=== PATIENT | male | born 1960 | race African-American/Black ===

== ENCOUNTER 2016-11-12 07:09 | Emergency (ER) | payer OTHER ==
--- NOTE | 2016-11-12 10:18 | ER Document Report ---
HPI - HPI Patient complains to provider of: cough, sore throat Onset: Other - 3 days Onset/Duration: Persistent Quality of pain: Achy Pain Level: 5 Context: Patient reports three-day history of cough, sore throat and tenderness to left side of neck. Patient denies any fever. Patient denies any nausea, vomiting, or abdominal pain. Associated Symptoms: Nonproductive cough, Sore throat. denies: Fever, Rhinnorhea Exacerbated by: Denies Relieved by: Denies Similar symptoms previously: Yes Recently seen / treated by doctor: No - ROS ROS below otherwise negative: Yes Systems Reviewed and Negative: Yes All other systems reviewed and negative - CONSTITUTIONAL Constitutional: DENIES: Fever, Chills - EENT EENT: REPORTS: Sore Throat. DENIES: Ear Pain, Nasal Drainage-Clear, Nasal Drainage-Purulent, Congestion, Eye problems - NEURO Neurology: DENIES: Headache, Weakness, Vision blurred, Dizzinesss / Vertigo - CARDIOVASCULAR Cardiovascular: DENIES: Chest pain - RESPIRATORY Respiratory: REPORTS: Coughing. DENIES: Trouble Breathing - GASTROINTESTINAL Gastrointestinal: DENIES: Abdominal Pain, Nausea, Patient vomiting, Diarrhea - MUSCULOSKELETAL Musculoskeletal: REPORTS: Neck Pain - Left lateral side. DENIES: Extremity pain , Back Pain, Swelling - DERM Skin Color: Normal Skin Problems: None - NURSING COMMENTS Comment: patient arrived at ED with complaints of a sore throat since wednesday. patient states that he was just trying to deal with it until it went away but this morning patient states that the pain was the worst that it has been and that his left lymph node is swollen. patient reports a cough that started this morning. NAD at this time. Breathing unlabored and even. skin warm dry and intact. A&Ox4 Past Medical History - General Information source: Patient - Social History Smoking Status: Never Smoker Cigarette use (# per day): No Chew tobacco use (# tins/day): No Frequency of alcohol use: None Drug Abuse: None Occupation: none Family History: Reviewed & Not Pertinent Patient has suicidal ideation: No Patient has homicidal ideation: No - Past Medical History Cardiac Medical History: Reports: Hx Hypertension Denies: Hx Coronary Artery Disease, Hx Heart Attack Pulmonary Medical History: Denies: Hx Asthma, Hx Bronchitis, Hx COPD, Hx Pneumonia Neurological Medical History: Denies: Hx Cerebrovascular Accident, Hx Seizures Endocrine Medical History: Reports: Hx Diabetes Mellitus Type 2 Renal/ Medical History: Denies: Hx Peritoneal Dialysis GI Medical History: Reports: Hx Hepatitis - Hep C Musculoskeltal Medical History: Denies Hx Arthritis Infectious Medical History: Reports: Hx Hepatitis - Hep C Past Surgical History: Reports: Hx Abdominal Surgery - liver bx, Hx Oral Surgery - dental extraction - Immunizations Immunizations up to date: Yes Hx Diphtheria, Pertussis, Tetanus Vaccination: Yes Vertical Provider Document - CONSTITUTIONAL Agree With Documented VS: Yes Exam Limitations: No Limitations General Appearance: WD/WN, No Apparent Distress - INFECTION CONTROL TRAVEL OUTSIDE OF THE [place] IN LAST 30 DAYS: No - HEENT HEENT: Atraumatic, Normocephalic, Pharyngeal Tenderness. negative: Pharyngeal Exudate, Pharyngeal Erythema, Tympanic Membrane Red, Tympanic Membrane Bulging Mouth Diagram: 1 - Dental caries without tenderness, no gingival abscess, no sublingual or submental swelling - NECK Neck: Lymphadenopathy-Left - Tender lymph node left upper anterior cervical chain normal skin color and temperature overlying lymph node - RESPIRATORY Respiratory: No Respiratory Distress, Chest Non-Tender, Other - Occasional dry cough. negative: Rales, Rhonchi, Wheezing O2 Sat by Pulse Oximetry: 96 - CARDIOVASCULAR Cardiovascular: Regular Rate, Regular Rhythm, No Murmur - BACK Back: Normal Inspection - MUSCULOSKELETAL/EXTREMETIES Musculoskeletal/Extremeties: MAEW - NEURO Level of Consciousness: Awake, Alert, Appropriate - DERM Integumentary: Warm, Dry, No Rash Course - Vital Signs Vital signs: Temp Pulse Resp BP Pulse Ox 98.1 F 71 16 162/97 H 96 11/12/16 07:14 11/12/16 07:14 11/12/16 07:14 11/12/16 07:14 11/12/16 07:14 - Laboratory Laboratory results interpreted by me: 11/12/16 13:23 Labs- Entire Visit 11/12/16 07:43 Group A Strep Rapid NEGATIVE - Diagnostic Test Radiology reviewed: Reports reviewed Discharge - Discharge Clinical Impression: Sore throat Upper respiratory infection Qualifiers: URI type: unspecified URI Qualified Code(s): J06.9 - Acute upper respiratory infection, unspecified Condition: Stable Disposition: HOME, SELF-CARE Instructions: Sore Throat ([facility]), Oral Narcotic Medication ([facility]), Upper Respiratory Illness ([facility]) Additional Instructions: Return immediately for any new or worsening symptoms Followup with your primary care provider, call tomorrow to make a followup appointment Throat culture is pending, we will call if you need any different treatment Prescriptions: Benzonatate [Tessalon Perle 100 mg Capsule] 100 mg PO Q8HP PRN #15 cap PRN Reason: Oxycodone HCl [Oxy-Ir 5 mg Tablet] 5 mg PO Q8 PRN #12 tablet PRN Reason: Forms: Elevated Blood Pressure Referrals: [facility] [Provider Group] - Follow up tomorrow
[2016-11-12 11:05] VITALS: BP 161/86
== END 2016-11-12 10:55 | disposition home or self-care (01) ==
LOC: ER 07:09
DX: J02.9 Acute pharyngitis, unspecified (principal); J06.9 Acute upper respiratory infection, unspecified; K02.9 Dental caries, unspecified; I10 Essential (primary) hypertension; E11.9 Type 2 diabetes mellitus without complications; Z86.19 Personal history of other infectious and parasitic diseases
CPT/HCPCS: 71020; 87070; 87880; 99283

== ENCOUNTER 2019-01-01 05:30 | Inpatient (IN) | payer OTHER ==
--- NOTE | 2019-01-01 05:58 | ER Document Report ---
Doctor's Note Notes: 01/01/19 05:55 Performed a quick stroke evaluation of the patient's. I did review the CT scan I do not see evidence of bleeding at this time. Radiologist report is pending. Patient says that throughout the night he has been try to get up to the bathroom. He stomach gets up he cannot walk well. He therefore eventually came to the ER. He does have some slurred speech. I suspect he is having a stroke. He has weakness on the right and leg and right arm that is worse than the left side. I continue to ask him when he last noticed that he had no symptoms and was doing well but he does not answer his question for me. He continues to talk about all the symptoms have been ongoing throughout the night but cannot give me an actual timeframe is when he was last completely normal and therefore it is difficult to determine when the stroke actually occurred. It appears that the last time that he most likely was normal was before going to bed yesterday evening based on what I can obtain from his history. Appropriate blood work has been ordered. I currently do not feel I can perform thrombolytic therapy at this time being that did not have a adequate timeframe of onset of symptoms that would deem it safe to give. Morning ED physician has just arrived and I have informed him that I just evaluate the patient informed him of my findings. Morning ED physician, Dr. Segundo, will assume care and continue patient's work- up. She is handling secretions well. Is no signs of impending airway compromise. He takes no medications and does not see a doctor on a routine basis. Dictation of this chart was performed using voice recognition software; therefore, there may be some unintended grammatical errors. 01/01/19 05:57
--- NOTE | 2019-01-01 05:58 | RADIOLOGY REPORT (SQ) ---
EXAM DESCRIPTION: CT HEAD WITHOUT IV CONTRAST COMPLETED DATE/TME: 01/01/2019 05:32 CLINICAL HISTORY: 59 years, Male, stroke alert COMPARISON: 07/12/2012 CT TECHNIQUE: 201 Images stored on PACS. All CT scanners at this facility use dose modulation, iterative reconstruction, and/or weight based dosing when appropriate to reduce radiation dose to as low as reasonably achievable (ALARA). [facility]: Dose Right [facility]: CareDose [facility]: Dose Right [facility]: Teradose 4D [facility]: [employer] LIMITATIONS: None. FINDINGS: Globes are intact. Paranasal sinuses and mastoid air cells are unremarkable. No displaced or depressed skull fracture. No intra or extra-axial hemorrhage. CT is limited for evaluation of acute infarct. No CT evidence for large or territorial acute infarct. Age-appropriate atrophy. Small vessel ischemic change. Age indeterminate lacunar infarct of the anterior limb of the left internal capsule. No mass or midline shift IMPRESSION: Age indeterminate lacunar infarct anterior limb left internal capsule. Atrophy. Small vessel ischemic change. TECHNICAL DOCUMENTATION: Quality ID # [id number]: Final reports with documentation of one or more dose reduction techniques (e.g., Automated exposure control, adjustment of the mA and/or kV according to patient size, use of iterative reconstruction technique) copyright 2010 [employer]- All Rights Reserved
[2019-01-01 06:00] LABS: ABSOLUTE BASOPHILS # (AUTO) 0.1 10^3/uL (0.0-0.2); ABSOLUTE EOSINOPHILS # (AUTO) 0.2 10^3/uL (0.0-0.6); ABSOLUTE LYMPHOCYTES (AUTO) 3.4 10^3/uL (0.5-4.7); ABSOLUTE MONOCYTES (AUTO) 0.7 10^3/uL (0.1-1.4); BASOPHILS % (AUTO) 0.6 % (0-2); EOSINOPHILS % (AUTO) 2.5 % (0-6); HEMOGLOBIN 14.6 g/dL (13.5-17.0); LYMPHOCYTES % (AUTO) 36.2 % (13-45); MEAN CORPUSCULAR HEMOGLOBIN 30.7 pg (27.0-33.4); MEAN CORPUSCULAR HGB CONC 33.9 g/dL (32.0-36.0); MEAN CORPUSCULAR VOLUME 91 fl (80-97); MONOCYTES % (AUTO) 7.3 % (3-13); PLATELET COUNT 237 10^3/uL (150-450); PROTHROMBIN TIME 11.7 SEC (11.4-15.4); RED BLOOD COUNT 4.74 10^6/uL (4.35-5.55); RED CELL DISTRIBUTION WIDTH 13.8 % (11.5-14.0); SEGMENTED NEUTROPHILS % (AUTO) 53.4 % (42-78); TOTAL CELLS COUNTED % (AUTO) 100 %; WHITE BLOOD COUNT 9.3 10^3/uL (4.0-10.5)
[2019-01-01 06:01] LABS: INTERNATIONAL RATION (INR) 0.82
--- NOTE | 2019-01-01 06:11 | RADIOLOGY REPORT (SQ) ---
EXAM DESCRIPTION: XR CHEST 1 VIEW COMPLETED DATE/TME: 01/01/2019 05:32 CLINICAL HISTORY: 59 years, Male, stroke alert COMPARISON: 11/12/2016 chest NUMBER OF VIEWS: 1 TECHNIQUE: Portable chest LIMITATIONS: None. FINDINGS: Heart size normal. Lungs clear. No pneumothorax IMPRESSION: Negative chest copyright 2010 [employer] [facility]- All Rights Reserved
[2019-01-01 06:18] LABS: ALANINE AMINOTRANSFERASE 17 U/L (21-72); ALBUMIN 4.2 g/dL (3.5-5.0); ALKALINE PHOSPHATASE 98 U/L (38-126); ANION GAP 12 (5-19); ASPARTATE AMINO TRANSFERASE 16 U/L (17-59); BILIRUBIN,DIRECT 0.2 mg/dL (0.0-0.4); BILIRUBIN,TOTAL 0.8 mg/dL (0.2-1.3); BLOOD UREA NITROGEN 13 mg/dL (7-20); CALCIUM 10.1 mg/dL (8.4-10.2); CARBON DIOXIDE 26 mmol/L (22-30); CHLORIDE 105 mmol/L (98-107); CREATINE KINASE 88 U/L (55-170); GLUCOSE 266 mg/dL (75-110); POTASSIUM 3.9 mmol/L (3.6-5.0); SODIUM 143.4 mmol/L (137-145); TOTAL PROTEIN 7.4 g/dL (6.3-8.2)
[2019-01-01 06:29] LABS: CREATINE KINASE MB 0.88 ng/mL (<4.55); TROPONIN I 0.016 ng/mL
--- NOTE | 2019-01-01 06:56 | ER Document Report ---
ED Neuro Symptoms/Deficit - General Chief Complaint: S/S of Possible Stroke Stated Complaint: S/S STROKE Time Seen by Provider: 01/01/19 05:54 Mode of Arrival: Ambulatory Information source: Patient Notes: This 59-year-old male patient comes emergency room with strokelike symptoms. He drove himself to the hospital and came through triage limping with right-sided deficits noted by the triage nurse. He was sent to CT scanner after a rapid evaluation by the nighttime physician. The patient tells me that he was up watching basketball game last night and fell asleep sometime after midnight he thinks. He reports waking between 1 AM and 2 AM and noted when he walks to the bathroom he had some trouble with his right lower extremity. He reportedly had a total of 3 episodes of getting up to go to the bathroom through the morning and each time it was more difficult to walk, so sometime after 5 AM he drove himself to the hospital and came in through triage. TRAVEL OUTSIDE OF THE [place] IN LAST 30 DAYS: No - Related Data Allergies/Adverse Reactions: acetaminophen [From Tylenol 8 Hour] Adverse Reaction (Unknown, Verified 11/12/16 07:13) Past Medical History - General Information source: Patient - Social History Smoking Status: Unknown if Ever Smoked Cigarette use (# per day): No Chew tobacco use (# tins/day): No Smoking Education Provided: No Drug Abuse: None Occupation: retired Lives with: Spouse/Significant other Family History: Reviewed & Not Pertinent - Past Medical History Cardiac Medical History: Reports: Hx Hypertension Endocrine Medical History: Reports: Hx Diabetes Mellitus Type 2 GI Medical History: Reports: Hx Hepatitis - Hep C Infectious Medical History: Reports: Hx Hepatitis - Hep C Past Surgical History: Reports: Hx Abdominal Surgery - liver bx, Hx Oral Surgery - dental extraction - Immunizations Immunizations up to date: Yes Hx Diphtheria, Pertussis, Tetanus Vaccination: Yes Review of Systems - Review of Systems Constitutional: No symptoms reported EENT: No symptoms reported Cardiovascular: No symptoms reported Respiratory: No symptoms reported Gastrointestinal: No symptoms reported Musculoskeletal: No symptoms reported Skin: No symptoms reported Hematologic/Lymphatic: No symptoms reported Neurological/Psychological: See HPI Physical Exam - Vital signs Vitals: Pulse Ox 99 01/01/19 05:32 Interpretation: Hypertensive - General General appearance: Alert In distress: None - HEENT Head: Normocephalic, Atraumatic Eyes: Normal Pupils: PERRL - Respiratory Respiratory status: No respiratory distress Breath sounds: Normal - Cardiovascular Rhythm: Regular Heart sounds: Normal auscultation Murmur: No - Abdominal Inspection: Normal Bowel sounds: Normal Tenderness: Nontender - Back Back: Normal - Extremities General upper extremity: Other - Right upper extremity weakness General lower extremity: Other - Right lower extremity weakness. No: Edema - Neurological Neuro grossly intact: No - Right-sided weakness - Psychological Associated symptoms: Normal affect, Normal mood - Skin Skin Temperature: Warm Skin Moisture: Dry Skin Color: Normal Course - Re-evaluation Re-evalutation: 01/01/19 07:30 Patient's blood pressures came back down to 184/102, so the Cardene will be held for now. 01/01/19 07:51 The patient has become quite argumentative when he learned he is being transferred to [facility]. He wants to get up and go drive himself to [facility]. I informed him that they do not manage strokes any differently than we do and they would likely want to transfer him to a stroke center. I have tried to help him understand that this transfer is in his best interest to help prevent further strokes and to help him fully recover. I have told him we can have security get his keys and try to contact a trusted family member to come get his car. 01/01/19 10:49 The transfer center at [facility] called with an update on bed status. They report transfer center called them and told him that he may go to bed later this afternoon and they would keep me updated. 01/01/19 14:05 At this time the patient had had worsening of his right-sided deficits to where it is similar to the way he initially presented. Since he was not going to get transferred in the near future, I sent him for MRI of his head which shows a 1.7 cm acute or subacute infarction in the left frontotemporal periventricular white matter with some involvement of the posterior limb of the internal capsule. I spoke with the transfer center at [facility] again and was told that it this point they do not know when they will have any discharges from the stroke unit, and they do not know if there are any other stroke unit patients pending in the emergency room at their facility. I contacted the hospitalist service at this facility and they will come see the patient and admit here until a bed opens. - Vital Signs Vital signs: Temp Pulse Resp BP Pulse Ox 76 12 192/92 H 98 01/01/19 06:00 01/01/19 06:21 01/01/19 06:21 01/01/19 06:21 - Laboratory Result Diagrams: 01/01/19 05:35 01/01/19 05:35 Laboratory results interpreted by me: 01/01/19 01/01/19 05:35 05:41 Glucose 266 H POC Glucose 249 H AST 16 L ALT 17 L - Diagnostic Test Radiology reviewed: Image reviewed, Reports reviewed - CT scan shows indeterminate lacunar infarct in the anterior limb of the left internal capsule with some atrophy, and small vessel ischemic changes. Chest x-ray is unremarkable. - EKG Interpretation by Me EKG shows normal: Sinus rhythm, [place], Intervals, QRS Complexes. abnormal: ST-T Waves - Borderline inferior T abnormalities Rate: Normal - 73 Rhythm: NSR [place]/QRS: Left axis deviation Voltage: Consistant with LVH When compared to previous EKG there are: Previous EKG unavailable - Consults Dr. Worthington Consulted provider: other Julieth Mclaughlin NP Time consulted: 14:02 Consulted provider: will come to ER Critical Care Note - Critical Care Note Total time excluding time spent on procedures (mins): 55 ED [employer]te[employer]/Exc Criteria - Inclusion Criteria: 1: Patient presented to ED within 3 hours of acute ischemic stroke symptom onset? -: No 2: Did baseline CT exclude intracranial hemorrhage and/or other risk factors? -: Yes 3: Is the age of the patient 18 years of age or greater? -: Yes : If any of the above questions are answered "NO" then stop, patient is not a candidate for Alteplase, : If all of the above questions are answered "YES" then continue with Exclusion Criteria. - Exclusion Criteria: 1: Is there evidence of intracranial hemorrhage on baseline CT? 2: Is there suspicion of subarachnoid hemorrhage (even if CT negative)? 3: Is there a history of serious head trauma, recent previous stroke or NV within 3 months? 4: Does the patient have a clinical presentation consistent with NV or post-NV pericarditis? 5: Is there history of intracranial hemorrhage? 6: On repeated measurement is Systolic BP greater than 185mmHg or Diastolic BP greater that 110 mmHg and is aggressive treatment needed to reduce blood pressure to these limits (e.g. constant infusion of an anti-hypertensive)? 7: Did the patient awake with stroke symptoms? 8: Has the patient had a lumbar puncture or an arterial puncture at a non- compressile site within 7 days? 9: With in the last 14 days did the patient have surgery or major trauma? 10: Is the patient or less than 2 weeks? 11: Was there any active bleeding or acute trauma? 12: Does the patient have intracranial neoplasm, arteriovenous malformation or a neurysm? 13: Does the patient have abnormal glucose (less than 50 or greater than 400mg/dl)? Record glucose in Comment. 14: Patient has rapidly improving symptoms at the time Alteplase is to be Administered. 15: Does the patient have any risks for bleeding, including but not limited to: a.: Current use of Coumadin with PT greater than 15 seconds or INR greater than 1.7. b.: Current use of Pradaxa (Dabigatran). c.: Heparin administereed within the past 48 hours and PTT elevated. d.: Platelet count less than 100,000/mm. e.: Major surgery or serious trauma within 14 days. f.: Gastrointestinal or gynecological urinary bleeding within 14 days. g.: Myocardial Infarction (NV) within 3 months. : If the answer to any of the above questions is "YES" then stop, the patient is not a candidate for Alteplase. : If the answer to all of the above questions is "NO" then the patient may be eligible for the Administration of Alteplase. : If the patient is noted to have seizure activity at onset of Stroke symptoms; Consult Neurologist for further evaluation. - The patient is: -: Included and is eligible to receive Alteplase. *Initiate bed placement at higher level of care* Reviewed risks & benefits of thrombolytic therapy: I have reviewed the risks and benefits of thrombolytic therapy with the patient and/or his/her family. -: Excluded and not eligible to receive Alteplase for the above exclusions. -: Excluded and not eligible to receive Alteplase for other reasons (specify in comments): - Diagnosis of TIA: -: Patient presented with transient symptoms that are now resolved and no other neurologic findings are currently present. List symptoms in comments. -: Patient is NOT a candidate for tPA. -: ____(put name in comment) has been consulted for admission and continued evaluation of risk factor assessment. ED NIH Stroke Scale - NIH Stroke Scale When completed:: Before Alteplase *: 1. NIH scale should be completed with appropriate accompanying assessment tools. *: 2. The NIH should reflect what the patient is capable of doing and should not be coached by the clinician. 1a. Level of Consciousness: 0=Alert;keenly responsive -: 1=Drowsy -: 2=Obtunded -: 3=Coma/unresponsive or reflex to noxious stimuli. 1a. Responses: 0 1b. Orientation Questions: a. What month is it? -: b. How old are you? -: 0=Answers both questions correctly. -: 1=Answers one question correctly or patient is intubated or has orotracheal trauma. -: 2=Answers neither question correctly. 1b. Responses: 0 1c. Response to commands: a. Open and close eyes? -: b. Forepart Rasper and release hand? -: Credit is given despite weakness. Demonstration of task is permitted. Substitute command if hands cannot be used. -: 0=Performs both tasks correctly -: 1=Performs one task correctly -: 2=Performs neither task correctly 1c. Responses: 1 2. Gaze: Establish eye contact and instruct patient to "Follow my finger" -: 0=Normal -: 1=Partial gaze palsy. Gaze is abnormal in one or both eyes, but where forced deviation or total gaze paresis is not present. -: 2=Forced deviation or total gaze paresis. 2. Responses: 0 3. Visual Cordero: Sees fingers in all four quadrants. -: 0=No visual loss. -: 1=Partial hemianopsia. -: 2=Complete hemianopsia. -: 3=Bilateral hemianopsia (including Cortical blindness) 3. Responses: 0 4. Facial Movement: Instruct patient to: -: a. Show me your teeth -: b. Raise your eyebrows -: c. Close your eyes -: d. Smile -: 0=Normal symmetrical movement -: 1=Minor paralysis (flattened nasolabial fold, asymmetry on smiling). -: 2=Partial paralysis (total or near total paralysis of lower face). -: 3=Complete paralysis of upper and lower face 4. Responses: 2 5. Motor functions (left arm): Alternate sides and extend each arm with palms down (90 degrees if sitting or 45 degrees for supine). -: 0=No drift;limb holds for full 10 seconds. -: 1=Drift; limb holds but drifts down before full 10 seconds, but does not hit bed. -: 2=Some effort against gravity; limb cannot get to or maintain position. -: 3=No effort against gravity; limb falls. -: 4=No movement. -: UN=Amputation, joint fusion, explain in comments. 5. Responses (left arm): 0 5. Motor Functions (right arm): Alternate sides and extend each arm with palms down (90 degrees if sitting or 45 degrees for supine). -: 0=No drift;limb holds for full 10 seconds. -: 1=Drift; limb holds but drifts down before full 10 seconds, but does not hit bed. -: 2=Some effort against gravity; limb cannot get to or maintain position. -: 3=No effort against gravity; limb falls. -: 4=No movement. -: UN=Amputation, joint fusion, explain in comments. 5. Responses (right arm): 3 6. Motor Functions (left leg): With patient lying supine, alternate sides and extend each leg (30 degrees always while supine). -: 0=No drift, leg holds position for full 5 seconds -: 1=Drift; leg falls before full 5 seconds but does not hit bed. -: 2=Some effort against gravity, leg falls to bed but some effort against gravity. -: 3=No effort against gravity, leg falls to bed immediately. -: 4=No movement. -: UN=Amputation, joint fusion; explain in comments. 6. Responses (left leg): 0 6. Motor Functions (right leg): With patient lying supine, alternate sides and extend each leg (30 degrees always while supine). -: 0=No drift, leg holds position for full 5 seconds -: 1=Drift; leg falls before full 5 seconds but does not hit bed. -: 2=Some effort against gravity, leg falls to bed but some effort against gravity. -: 3=No effort against gravity, leg falls to bed immediately. -: 4=No movement. -: UN=Amputation, joint fusion; explain in comments. 6. Responses (right leg): 3 7. Limb Ataxia: With eyes open instruct patient to: -: a. "Touch your finger to your nose". -: b. "Touch your heel to your rehman" -: 0=Absent -: 1=Present in one limb. -: 2=Present in two limbs. -: UN=Amputation or joint fusion; explain in comments. 7. Responses: 2 8. Sensory: Test sensation using pinprick or noxious stimuli. Test as many body parts as possible. -: 0=Normal;no sensory loss -: 1=Mile to moderate sensory loss (patient feels pin prick but is less sharp on affected side). -: 2=Severe or total sensory loss. 8. Responses: 0 9. Best Language: Instruct patient to: -: a. "Describe what you see in this picture." -: b. "Name the items in this picture." -: c. "Read these sentences." -: 0=No aphasia, normal -: 1=Mild to moderate aphasia. -: 2=Severe aphasia -: 3=Mute, global aphasia, no usable speech or auditory comprehension. 9. Responses: 0 10. Articulation, Dysarthia: Instruct patient to: -: "Read these words" or "Repeat these words" -: 0=Normal -: 1=Mild to moderate; patient may slur some words but can be understood without difficulty. -: 2=Severe; patients speech so slurred as to be unintelligible in the absence of dysphasia. -: UN=Intubated or other physical barrier, explain in comments. 10. Responses: 1 11. Extinction or inattention: 0=No abnormality -: 1= Visual, tactile, auditory, spatial, or personal inattention or extinction to bilateral simulation in one or the sensory modalities. -: 2=Profound donnell-inattention or donnell-inattention to more than one modality; does not recognize own hand. 11. Responses: 0 Total Score: 12 Notes: This examination and score was done about 6:15 AM. When I rechecked the patient at 6:35 AM, I found that he was considerably improved, his speech was much clear. His right facial motor weakness was much improved. 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 He was able to knot picker cloth his hand and touch his face. Discharge - Discharge Clinical Impression: Acute CVA (cerebrovascular accident) Hypertension Qualifiers: Hypertension type: essential hypertension Qualified Code(s): I10 - Essential (primary) hypertension Condition: Fair Disposition: ADMITTED INPATIENT Admitting Provider: Chloe (Hospitalist) Unit Admitted: [facility]
[2019-01-01] MEDS ORDERED: NICARDIPINE HCL RTU, ISO-OS 20 MG/200 ML RTUINJ IV PRN (06:58)
[2019-01-01] MEDS ORDERED: NORMAL SALINE 1000 ML 1,000 ML IV ONE (10:50)
[2019-01-01] MEDS ORDERED: LISINOPRIL 10 MG TABLET PO ONE (10:53)
[2019-01-01] MEDS ORDERED: METFORMIN HCL 500 MG TABLET PO ONE (10:53)
[2019-01-01] MEDS ORDERED: ASPIRIN 81 MG TABLET, CHEWABLE PO ONE (11:43)
--- NOTE | 2019-01-01 13:32 | RADIOLOGY REPORT (SQ) ---
EXAM DESCRIPTION: MRI HEAD WITHOUT COMPLETED DATE/TIME: 01/01/2019 1:17 pm REASON FOR STUDY: Acute CVA COMPARISON: Earlier CT TECHNIQUE: Multiplanar imaging includes non-contrasted T1, T2, FLAIR, and diffusion with ADC map seq uences. Images stored on PACS. LIMITATIONS: None. FINDINGS: ANATOMY: No anomalies. Normal vascular flow voids. Pituitary fossa normal. CSF SPACES: Atrophy induced prominence of ventricles and CSF spaces. CEREBRUM: High signal intensity lesions scattered throughout the white matter on FLAIR imaging with d istribution suggesting micro-vascular ischemic changes. No evidence of hemorrhage, mass, or extraaxi al fluid collection. POSTERIOR FOSSA: No signal alteration. No hemorrhage. No edema, masses or mass effect. Internal clare tory canals, cerebello-pontine angles, mastoids normal. DIFFUSION IMAGING: Positive for an area of approximately 1.7 cm acute or sub-acute infarction in the left frontotemporal periventricular white matter with some involvement of the posterior limb of the i nternal capsule. ORBITS: No masses. Globes normal. PARANASAL SINUSES: No fluid levels. Mucosa normal. OTHER: No other significant finding. IMPRESSION: Positive for an area of approximately 1.7 cm acute or sub-acute infarction in the left f rontotemporal periventricular white matter with some involvement of the posterior limb of the interna l capsule. EVIDENCE OF ACUTE STROKE: YES. LEFT MCA. TECHNICAL DOCUMENTATION: JOB ID: [id number] [employer]- All Rights Reserved Reading location - IP/workstation name: [email or web address]
[2019-01-01] MEDS ORDERED: ONDANSETRON HCL INJ/PF 4 MG/2 ML SDV IV PRN (14:35)
[2019-01-01] MEDS ORDERED: MAGNESIUM HYDROXIDE SUSP 30 ML UDCUP PO PRN (14:35)
[2019-01-01] MEDS ORDERED: LABETALOL HCL INJ 20 MG/4 ML DISP.SYRIN IV PRN (14:35)
[2019-01-01] MEDS ORDERED: DOCUSATE SODIUM 100 MG CAPSULE PO PRN (14:35)
[2019-01-01] MEDS ORDERED: IBUPROFEN 600 MG TABLET PO PRN (14:41)
[2019-01-01] MEDS ORDERED: GLUCAGON,HUMAN RECOMB 1 MG INJ IM PRN (14:42)
[2019-01-01] MEDS ORDERED: DEXTROSE 40% GEL 15 GM TUBE PO PRN ×2 (14:42)
[2019-01-01] MEDS ORDERED: DEXTROSE 50%-WATER 25 GM/50 ML DISP.SYRIN IV PRN ×2 (14:42)
[2019-01-01] MEDS ORDERED: HYDRALAZINE HCL INJ/PF 20 MG/1 ML SDV IV PRN (16:34)
[2019-01-01] MEDS ORDERED: NICOTINE 7 MG/24 HR PATCH.TD24 TD PRN (17:02)
[2019-01-01] MEDS ORDERED: NICOTINE 21 MG/24 HR PATCH.TD24 TD PRN (17:06)
--- NOTE | 2019-01-01 17:12 | PDOC H&P ---
History of Present Illness Admission Date/PCP: 01/01/19 14:22 Patient complains of: Right-sided weakness History of Present Illness: LEONILA RODRIGUEZ is a 59 year old male with a past medical history of hypertension, hyperlipidemia, type 2 diabetes mellitus, and hepatitis C (post treatment with Harvoni) who presented to the emergency department with a complaint of progressively worsening right-sided weakness first noticed approximately 1 AM. Patient reports that as he was getting up to use restroom overnight he noted that he was becoming progressively weak on the right side with slurred speech. Evaluation in the emergency department revealed hypertension (212/107), unremarkable laboratory evaluation other than elevated glucose (mid 200s), normal chest x-ray, EKG demonstrating NSR with LVH, head CT demonstrating age- indeterminate lacunar infarct anterior limb of the left internal capsule with atrophy and small vessel ischemic changes. Follow-up MRI reveals 1.7 cm acute to subacute infarction of the left frontal temporal periventricular white matter with some involvement of the posterior limb of the internal capsule; left MCA acute CVA. He is referred to the hospitalist service for admission and management of the above-stated complaints. Past Medical History Cardiac Medical History: Reports: Hyperlipidema, Hypertension Denies: Coronary Artery Disease, Myocardial Infarction Pulmonary Medical History: Denies: Asthma, Bronchitis, Chronic Obstructive Pulmonary Disease (COPD), Pneumonia Neurological Medical History: Denies: Ischemic CVA, Seizures Endocrine Medical History: Reports: Diabetes Mellitus Type 2 Renal/ Medical History: Reports: None GI Medical History: Reports: Hepatitis - Hep C Musculoskeltal Medical History: Denies: Arthritis Psychiatric Medical History: Reports: Tobacco Dependency Hematology: Reports: Anemia Past Surgical History Past Surgical History: Reports: None Social History Information Source: Patient Lives with: Spouse/Significant other Smoking Status: Current Every Day Smoker Cigarettes Packs Per Day: 1 Frequency of Alcohol Use: Occasional Hx Recreational Drug Use: No Drugs: None Hx Prescription Drug Abuse: No - Advance Directive Resuscitation Status: Full Code Family History Family History: Reviewed & Not Pertinent Parental Family History Reviewed: Yes Children Family History Reviewed: Yes Sibling(s) Family History Reviewed.: Yes Medication/Allergy Home Medications: No Home Medications 01/01/19 Allergies/Adverse Reactions: acetaminophen [From Tylenol 8 Hour] Adverse Reaction (Unknown, Verified 11/12/16 07:13) Review of Systems Constitutional: PRESENT: weakness. ABSENT: chills, fever(s), headache(s), weight gain, weight loss Eyes: ABSENT: visual disturbances Ears: ABSENT: hearing changes Cardiovascular: ABSENT: chest pain, dyspnea on exertion, edema, orthropnea, palpitations Respiratory: ABSENT: cough, hemoptysis Gastrointestinal: ABSENT: abdominal pain, constipation, diarrhea, hematemesis, hematochezia, nausea, vomiting Genitourinary: ABSENT: dysuria, hematuria Musculoskeletal: ABSENT: joint swelling Integumentary: ABSENT: rash, wounds Neurological: PRESENT: as per HPI, abnormal speech, focal weakness. ABSENT: abnormal gait, confusion, dizziness, syncope Psychiatric: ABSENT: anxiety, depression, homidical ideation, suicidal ideation Endocrine: ABSENT: cold intolerance, heat intolerance, polydipsia, polyuria Hematologic/Lymphatic: ABSENT: easy bleeding, easy bruising Physical Exam Vital Signs: Temp Pulse Resp BP Pulse Ox 98.4 F 67 22 H 197/101 H 100 01/01/19 07:43 01/01/19 15:00 01/01/19 15:01 01/01/19 15:01 01/01/19 15:01 Intake & Output 12/31/18 01/01/19 01/02/19 06:59 06:59 06:59 Intake Total 646 Output Total 350 Balance 296 Weight 83 kg General appearance: PRESENT: no acute distress, cooperative, well-developed, well-nourished Head exam: PRESENT: atraumatic, normocephalic Eye exam: PRESENT: conjunctiva pink, EOMI, PERRLA. ABSENT: scleral icterus Mouth exam: PRESENT: moist, tongue midline Neck exam: ABSENT: carotid bruit, JVD, lymphadenopathy, thyromegaly Respiratory exam: PRESENT: clear to auscultation fredi, symmetrical, unlabored. ABSENT: rales, rhonchi, wheezes Cardiovascular exam: PRESENT: RRR, +S1, +S2. ABSENT: diastolic murmur, rubs, systolic murmur Pulses: PRESENT: normal dorsalis pedis pul Vascular exam: PRESENT: normal capillary refill GI/Abdominal exam: PRESENT: normal bowel sounds, soft. ABSENT: distended, guarding, mass, organolmegaly, rebound, tenderness Rectal exam: PRESENT: deferred Extremities exam: PRESENT: full ROM. ABSENT: calf tenderness, clubbing, pedal edema Neurological exam: PRESENT: alert, awake, oriented to person, oriented to place, oriented to time, oriented to situation, other - Patient with slurred speech, right lower extremity weakness 3/5, profound weakness to right upper extremity: unable to lift against gravity, 1/5 field technician strength. 5/5 upper/lower extremity strength on left.. ABSENT: motor sensory deficit Psychiatric exam: PRESENT: appropriate affect, normal mood. ABSENT: homicidal ideation, suicidal ideation Skin exam: PRESENT: dry, intact, warm. ABSENT: cyanosis, rash Results Laboratory Results: 01/01/19 05:35 01/01/19 05:35 01/01/19 01/01/19 05:35 05:35 WBC 9.3 RBC 4.74 Hgb 14.6 Hct 43.0 MCV 91 MCH 30.7 MCHC 33.9 RDW 13.8 Plt Count 237 Seg Neutrophils % 53.4 Lymphocytes % 36.2 Monocytes % 7.3 Eosinophils % 2.5 Basophils % 0.6 Absolute Neutrophils 5.0 Absolute Lymphocytes 3.4 Absolute Monocytes 0.7 Absolute Eosinophils 0.2 Absolute Basophils 0.1 Sodium 143.4 Potassium 3.9 Chloride 105 Carbon Dioxide 26 Anion Gap 12 BUN 13 Creatinine 1.12 Est GFR ( Amer) > 60 Est GFR (Non-Af Amer) > 60 Glucose 266 H Calcium 10.1 Total Bilirubin 0.8 AST 16 L ALT 17 L Alkaline Phosphatase 98 Total Protein 7.4 Albumin 4.2 01/01/19 01/01/19 05:35 05:35 Creatine Kinase 88 CK-MB (CK-2) 0.88 Troponin I 0.016 Impressions: Chest X-Ray 01/01/19 05:32 IMPRESSION: Negative chest copyright 2010 [employer]- All Rights Reserved Head CT 01/01/19 05:32 IMPRESSION: Age indeterminate lacunar infarct anterior limb left internal capsule. Atrophy. Small vessel ischemic change. TECHNICAL DOCUMENTATION: Quality ID # 436: Final reports with documentation of one or more dose reduction techniques (e.g., Automated exposure control, adjustment of the mA and/or kV according to patient size, use of iterative reconstruction technique) copyright 2010 [employer]- All Rights Reserved Head MRI 01/01/19 12:25 IMPRESSION: Positive for an area of approximately 1.7 cm acute or sub-acute infarction in the left frontotemporal periventricular white matter with some involvement of the posterior limb of the internal capsule. EVIDENCE OF ACUTE STROKE: YES. LEFT MCA. Assessment and Plan - Diagnosis (1) Acute CVA (cerebrovascular accident) Is this a current diagnosis for this admission?: Yes Plan: Patient with onset of slurred speech and right-sided weakness overnight. Head CT and MRI reveal a left territory MCA acute to subacute infarction. Carotid Dopplers pending. Patient is admitted to [facility] on continuous cardiac telemetry. Allowing for permissive hypertension; the ED provider did note significant increase in symptomology with even minimal blood pressure reduction. IV hydralazine as needed for SBP>220, DBP>120 Daily aspirin, high-dose statin therapy. PT/OT/ST consultations. Dr. Horace Hurst is consulted. Discharge planning is consulted. (2) DM type 2 (diabetes mellitus, type 2) Qualifiers: Diabetes mellitus mcc insulin use: without termite helper use Diabetes mellitus complication status: with hyperglycemia Qualified Code(s): E11.65 - Type 2 diabetes mellitus with hyperglycemia Is this a current diagnosis for this admission?: Yes Plan: Patient is placed on a consistent carb/cardiac diet. Accu-Cheks before meals and at bedtime with Humalog for sliding scale coverage. Hold home dose of metformin while inpatient. Hypoglycemia protocol. Registered dietitian and the patient educator consulted. (3) Hypertension Qualifiers: Hypertension type: essential hypertension Qualified Code(s): I10 - Essential (primary) hypertension Is this a current diagnosis for this admission?: Yes Plan: Patient endorses a history of hypertension; reports that he has been off of his blood pressure medications for at least one year. On admission is found to have blood pressures 200/100. ED provider noted significant increase in patient's symptomology with slight reduction in blood pressures. Will allow for permissive hypertension secondary to acute CVA. IV hydralazine as needed for SBP >200 and DBP>120. Will begin slow reduction (15%) of HTN tomorrow. Cardiac diet. (4) Tobacco dependence Is this a current diagnosis for this admission?: Yes Plan: Smoking cessation strongly encouraged. Nicotine replacement therapies are provided.
--- NOTE | 2019-01-01 17:45 | RADIOLOGY REPORT (SQ) ---
EXAM DESCRIPTION: CAROTID DOPPLER COMPLETED DATE/TIME: 01/01/2019 5:35 pm REASON FOR STUDY: Lt MCA CVA COMPARISON: None. TECHNIQUE: Grayscale ultrasound, Doppler velocity and spectra, and color Doppler images acquired of the extra-cranial carotid and vertebral arteries. Images stored on PACS. LIMITATIONS: None. FINDINGS: RIGHT CAROTID CCA Velocities: Within normal limits. ICA Velocities Peak systolic 37 cm/s. End diastolic 14 cm/s. Proximal ICA/CCA peak systolic ratio 0.7. Spectra normal. No significant plaque. LEFT CAROTID CCA Velocities: Within normal limits. ICA Velocities Peak systolic 68 cm/s. End diastolic 30 cm/s. Proximal ICA/CCA peak systolic ratio 0.9. Spectra normal. No significant plaque. VERTEBRAL ARTERIES: Antegrade flow. Normal waveforms. SUBCLAVIAN ARTERIES: No finding. OTHER: No other significant finding. IMPRESSION: NO HEMODYNAMICALLY SIGNIFICANT STENOSIS. COMMENT: Quality ID #195: Velocity criteria are extrapolated from the diameter data as defined by t he Society of Radiologists in Ultrasound Consensus Conference. Radiology 2003: 229; 340-346. TECHNICAL DOCUMENTATION: JOB ID: [id number] [place]-72 2010 [employer]- All Rights Reserved Reading location - IP/workstation name: [employer]
[2019-01-01] MEDS: INSULIN LISPRO 100 UNIT/ML 3 ML VIAL SUBCUT SCH ×2 (18:57→21:53)
[2019-01-01] MEDS: FAMOTIDINE 20 MG TABLET PO SCH (21:10)
[2019-01-01] MEDS: HEPARIN SOD (PORCINE) 5,000 UNIT/ML 1 ML SYRINGE SUBCUT SCH (21:10)
[2019-01-01] MEDS: ATORVASTATIN CALCIUM 80 MG TABLET PO SCH (21:10)
--- NOTE | 2019-01-01 22:51 | EKG REPORT ---
SEVERITY:- ABNORMAL ECG - SINUS RHYTHM LEFT AXIS DEVIATION LEFT VENTRICULAR HYPERTROPHY BORDERLINE T ABNORMALITIES, INFERIOR LEADS : Confirmed by: Francesca Moody 01-Jan-2019 22:50:32
[2019-01-02 05:56] LABS: ABSOLUTE EOSINOPHILS # (AUTO) 0.1 10^3/uL (0.0-0.6); ABSOLUTE LYMPHOCYTES (AUTO) 2.9 10^3/uL (0.5-4.7); ABSOLUTE MONOCYTES (AUTO) 0.8 10^3/uL (0.1-1.4); ABSOLUTE NEUT (AUTO) 7.2 10^3/uL (1.7-8.2); BASOPHILS % (AUTO) 0.4 % (0-2); EOSINOPHILS % (AUTO) 1.1 % (0-6); HEMATOCRIT 46.2 % (37.9-51.0); HEMOGLOBIN 15.2 g/dL (13.5-17.0); LYMPHOCYTES % (AUTO) 26.6 % (13-45); MEAN CORPUSCULAR HEMOGLOBIN 30.2 pg (27.0-33.4); MEAN CORPUSCULAR VOLUME 92 fl (80-97); MONOCYTES % (AUTO) 6.9 % (3-13); PLATELET COUNT 230 10^3/uL (150-450); RED BLOOD COUNT 5.05 10^6/uL (4.35-5.55); RED CELL DISTRIBUTION WIDTH 13.9 % (11.5-14.0); TOTAL CELLS COUNTED % (AUTO) 100 %; WHITE BLOOD COUNT 11.1 10^3/uL (4.0-10.5)
[2019-01-02] MEDS: HEPARIN SOD (PORCINE) 5,000 UNIT/ML 1 ML SYRINGE SUBCUT SCH ×3 (05:58→22:10)
[2019-01-02 06:24] LABS: ALANINE AMINOTRANSFERASE 19 U/L (21-72); ALKALINE PHOSPHATASE 103 U/L (38-126); ANION GAP 15 (5-19); ASPARTATE AMINO TRANSFERASE 18 U/L (17-59); BILIRUBIN,TOTAL 1.7 mg/dL (0.2-1.3); CALCIUM 10.3 mg/dL (8.4-10.2); CARBON DIOXIDE 24 mmol/L (22-30); CHLORIDE 101 mmol/L (98-107); GLUCOSE 219 mg/dL (75-110); POTASSIUM 4.1 mmol/L (3.6-5.0); SODIUM 140.2 mmol/L (137-145)
[2019-01-02 06:31] LABS: ALBUMIN 4.5 g/dL (3.5-5.0); BLOOD UREA NITROGEN 12 mg/dL (7-20); CHOLESTEROL 229.63 mg/dL (0-200); TOTAL PROTEIN 7.7 g/dL (6.3-8.2); TRIGLYCERIDES 181 mg/dL (<150)
[2019-01-02 06:35] LABS: DIRECT LDL 145 mg/dL (<100)
[2019-01-02 06:38] LABS: VLDL CHOLESTEROL 36.2 mg/dL (10-31)
[2019-01-02] MEDS: INSULIN LISPRO 100 UNIT/ML 3 ML VIAL SUBCUT SCH ×4 (08:56→22:10)
[2019-01-02] MEDS ORDERED: LISINOPRIL 5 MG TABLET PO SCH (10:00)
[2019-01-02] MEDS: FAMOTIDINE 20 MG TABLET PO SCH ×2 (10:17→22:09)
[2019-01-02] MEDS: ASPIRIN 81 MG TABLET, ENT COATED PO SCH (10:17)
[2019-01-02] MEDS ORDERED: ENALAPRILAT DIHYDRATE INJ/PF 1.25 MG/1 ML SDV IV PRN ×2 (11:04→13:37)
[2019-01-02] MEDS ORDERED: ENALAPRILAT DIHYDRATE INJ/PF 2.5 MG/2 ML SDV IV PRN (13:41)
--- NOTE | 2019-01-02 13:57 | PDOC PROGRESS REPORT ---
Subjective Progress Note for:: 01/02/19 Subjective:: LEONILA RODRIGUEZ is a 59 year old male with a past medical history of hypertension, hyperlipidemia, type 2 diabetes mellitus, and hepatitis C (post treatment with Harvoni) who was admitted 01/01/2019 with an acute left territory MCA infarction. Patient was seen on morning rounds. He was found resting in bed comfortably on room air. He reports continued flaccid paralysis of the right upper extremity, however, did note that he was able to spontaneously move the arm without intent earlier today. He is frustrated that he is not able to intentionally move the extremity. Toward the end of our discussion, he reported chest discomfort; non radiating without associated symptoms and resolved after Vasotec administration and improved blood pressure control. He denies fever, chills, headache, dizziness, blurred vision, palpitations, orthopnea, dyspnea, cough, abdominal pain, nausea vomiting and diarrhea. He has no other questions or concerns at this time. No concerns per nursing. Reason For Visit: ACUTE LEFT MCA,CVA Physical Exam Vital Signs: Temp Pulse Resp BP Pulse Ox 98.1 F 94 24 H 195/103 H 99 01/02/19 11:30 01/02/19 12:00 01/02/19 12:00 01/02/19 12:55 01/02/19 12:00 Intake & Output 01/01/19 01/02/19 01/03/19 06:59 06:59 06:59 Intake Total 1231 472 Output Total 1725 575 Balance -494 -103 Weight 83 kg 81.7 kg General appearance: PRESENT: no acute distress, cooperative, well-developed, w ell-nourished - Overweight Head exam: PRESENT: atraumatic, normocephalic Eye exam: PRESENT: conjunctiva pink, EOMI, PERRLA. ABSENT: scleral icterus Mouth exam: PRESENT: moist, tongue midline Neck exam: ABSENT: carotid bruit, JVD, lymphadenopathy, thyromegaly Respiratory exam: PRESENT: clear to auscultation fredi, symmetrical, unlabored. ABSENT: rales, rhonchi, wheezes Cardiovascular exam: PRESENT: RRR, +S1, +S2, tachycardia. ABSENT: diastolic mu rmur, rubs, systolic murmur Pulses: PRESENT: normal dorsalis pedis pul Vascular exam: PRESENT: normal capillary refill GI/Abdominal exam: PRESENT: normal bowel sounds, soft. ABSENT: distended, guarding, mass, organolmegaly, rebound, tenderness Rectal exam: PRESENT: deferred Extremities exam: PRESENT: full ROM - Moves all extremities spontaneously. ABSENT: calf tenderness, clubbing, pedal edema Neurological exam: PRESENT: alert, awake, oriented to person, oriented to place, oriented to time, oriented to situation, CN II-XII grossly intact, other - Left facial droop, right side weakness (Upper > Lower extremity). ABSENT: motor sensory deficit Psychiatric exam: PRESENT: appropriate affect, normal mood. ABSENT: homicidal ideation, suicidal ideation Skin exam: PRESENT: dry, intact, warm. ABSENT: cyanosis, rash Results Laboratory Results: 01/02/19 05:11 01/02/19 05:11 01/02/19 01/02/19 05:11 05:11 WBC 11.1 H RBC 5.05 Hgb 15.2 Hct 46.2 MCV 92 MCH 30.2 MCHC 33.0 RDW 13.9 Plt Count 230 Seg Neutrophils % 65.0 Lymphocytes % 26.6 Monocytes % 6.9 Eosinophils % 1.1 Basophils % 0.4 Absolute Neutrophils 7.2 Absolute Lymphocytes 2.9 Absolute Monocytes 0.8 Absolute Eosinophils 0.1 Absolute Basophils 0.0 Sodium 140.2 Potassium 4.1 Chloride 101 Carbon Dioxide 24 Anion Gap 15 BUN 12 Creatinine 0.96 Est GFR ( Amer) > 60 Est GFR (Non-Af Amer) > 60 Glucose 219 H Calcium 10.3 H Total Bilirubin 1.7 H AST 18 ALT 19 L Alkaline Phosphatase 103 Total Protein 7.7 Albumin 4.5 Triglycerides 181 H Cholesterol 229.63 H LDL Cholesterol Direct 145 H VLDL Cholesterol 36.2 H HDL Cholesterol 54 01/01/19 01/01/19 01/02/19 05:35 05:35 12:36 Creatine Kinase 88 CK-MB (CK-2) 0.88 Troponin I 0.016 0.018 Impressions: Chest X-Ray 01/01/19 05:32 IMPRESSION: Negative chest copyright 2011 [employer]- All Rights Reserved Head CT 01/01/19 05:32 IMPRESSION: Age indeterminate lacunar infarct anterior limb left internal capsule. Atrophy. Small vessel ischemic change. TECHNICAL DOCUMENTATION: Quality ID # 436: Final reports with documentation of one or more dose reduction techniques (e.g., Automated exposure control, adjustment of the mA and/or kV according to patient size, use of iterative reconstruction technique) copyright 2011 [employer]- All Rights Reserved Head MRI 01/01/19 12:25 IMPRESSION: Positive for an area of approximately 1.7 cm acute or sub-acute infarction in the left frontotemporal periventricular white matter with some involvement of the posterior limb of the internal capsule. EVIDENCE OF ACUTE STROKE: YES. LEFT MCA. Carotid Doppler Study 01/01/19 14:37 IMPRESSION: NO HEMODYNAMICALLY SIGNIFICANT STENOSIS. Assessment and Plan - Diagnosis (1) Acute CVA (cerebrovascular accident) Is this a current diagnosis for this admission?: Yes Plan: Patient with onset of slurred speech and right-sided weakness overnight. Head CT and MRI reveal a left territory MCA acute to subacute infarction. Carotid Doppler is negative for hemodynamically significant stenosis. Patient is admitted to [facility] on continuous cardiac telemetry. Allowing for permissive hypertension; the ED provider did note significant increase in symptomology with even minimal blood pressure reduction. Begin gradual Blood pressure reduction today; IV Vasotec as needed for SBP>200, DBP>100 Daily aspirin, high-dose statin therapy. PT/OT/ST consultations. Dr. Horace Hurst is consulted. Discharge planning is consulted. (2) DM type 2 (diabetes mellitus, type 2) Qualifiers: Diabetes mellitus prison insulin use: without intermediate project manager use Diabetes mellitus complication status: with hyperglycemia Qualified Code(s): E11.65 - Type 2 diabetes mellitus with hyperglycemia Is this a current diagnosis for this admission?: Yes Plan: A1C 11.5% Patient is placed on a consistent carb/cardiac diet. Accu-Cheks before meals and at bedtime with Humalog for sliding scale coverage. Start Lantus qHS Hold home dose of metformin while inpatient. Hypoglycemia protocol. Registered dietitian and the patient educator consulted. (3) Hypertension Qualifiers: Hypertension type: essential hypertension Qualified Code(s): I10 - Essential (primary) hypertension Is this a current diagnosis for this admission?: Yes Plan: Patient endorses a history of hypertension; reports that he has been off of his blood pressure medications for at least one year. On admission is found to have blood pressures 200/100. ED provider noted significant increase in patient's symptomology with slight reduction in blood pressures. Will allow for permissive hypertension secondary to acute CVA. IV Vasotec as needed for SBP >200 and DBP>100. Start low dose lisinopril. Have begun slow reduction (15%) of HTN; will continue gradual reduction each day Cardiac diet. (4) Tobacco dependence Is this a current diagnosis for this admission?: Yes Plan: Smoking cessation strongly encouraged. Nicotine replacement therapies are provided. (5) Hyperlipidemia Is this a current diagnosis for this admission?: Yes Plan: LDL 145, HDL 54, Triglycerides 181, TChol 229 Cardiac diet. Continue high dose statin. - Time Time Spent with patient: 15-24 minutes Medications reviewed and adjusted accordingly: Yes Anticipated discharge: Acute Rehab Within: within 72 hours
--- NOTE | 2019-01-02 16:11 | EKG REPORT ---
SEVERITY:- ABNORMAL ECG - SINUS RHYTHM LEFT AXIS DEVIATION LEFT VENTRICULAR HYPERTROPHY BORDERLINE PROLONGED QT INTERVAL : Confirmed by: Francesca Mcneil MD 02-Jan-2019 16:11:05
[2019-01-02] MEDS: ATORVASTATIN CALCIUM 80 MG TABLET PO SCH (22:09)
[2019-01-02] MEDS: INSULIN GLARGINE,HUM.REC.ANLOG 1,000 UNIT/10 ML VIAL SUBCUT SCH (22:10)
[2019-01-03 03:24] LABS: HEMATOCRIT 51.9 % (37.9-51.0); MEAN CORPUSCULAR HEMOGLOBIN 30.7 pg (27.0-33.4); MEAN CORPUSCULAR HGB CONC 33.9 g/dL (32.0-36.0); MEAN CORPUSCULAR VOLUME 91 fl (80-97); PLATELET COUNT 233 10^3/uL (150-450); RED BLOOD COUNT 5.72 10^6/uL (4.35-5.55); RED CELL DISTRIBUTION WIDTH 14.1 % (11.5-14.0); WHITE BLOOD COUNT 11.8 10^3/uL (4.0-10.5)
[2019-01-03 03:40] LABS: ANION GAP 15 (5-19); BLOOD UREA NITROGEN 15 mg/dL (7-20); CARBON DIOXIDE 27 mmol/L (22-30); CHLORIDE 98 mmol/L (98-107); GLUCOSE 169 mg/dL (75-110); HEMOGLOBIN 17.6 g/dL (13.5-17.0); POTASSIUM 3.9 mmol/L (3.6-5.0)
[2019-01-03] MEDS: HEPARIN SOD (PORCINE) 5,000 UNIT/ML 1 ML SYRINGE SUBCUT SCH ×3 (05:06→21:58)
[2019-01-03] MEDS: INSULIN LISPRO 100 UNIT/ML 3 ML VIAL SUBCUT SCH ×4 (07:55→21:57)
[2019-01-03] MEDS ORDERED: ENALAPRILAT DIHYDRATE INJ/PF 2.5 MG/2 ML SDV IV PRN (08:35)
[2019-01-03] MEDS: FAMOTIDINE 20 MG TABLET PO SCH ×2 (09:18→21:55)
[2019-01-03] MEDS: ASPIRIN 81 MG TABLET, ENT COATED PO SCH (09:19)
[2019-01-03] MEDS: AMLODIPINE BESYLATE 5 MG TABLET PO SCH (09:20)
[2019-01-03] MEDS ORDERED: LISINOPRIL 5 MG TABLET PO SCH (10:00)
--- NOTE | 2019-01-03 14:21 | PDOC PROGRESS REPORT ---
Subjective Progress Note for:: 01/03/19 Subjective:: LEONILA RODRIGUEZ is a 59 year old male with a past medical history of hypertension, hyperlipidemia, type 2 diabetes mellitus, and hepatitis C (post treatment with Harvoni) who was admitted 01/01/2019 with an acute left territory MCA infarction. Patient was seen on morning rounds with family members present. He was found resting in bed comfortably on room air; eating his lunch. He is noted to be quite agitated/frustrated today; tells me multiple times I should talk with his nurse and physical therapy to find out how he is doing, "because clearly I'm not the way I should be." When prompted for further details, he states, "well, I can't walk." Otherwise, he denies fever, chills, headache, dizziness, blurred vision, chest pain, palpitations, orthopnea, dyspnea, cough, abdominal pain, nausea vomiting and diarrhea. He has no questions or concerns at this time. No concerns per nursing. Reason For Visit: ACUTE LEFT MCA,CVA Physical Exam Vital Signs: Temp Pulse Resp BP Pulse Ox 98.1 F 99 16 162/104 H 95 01/03/19 12:23 01/03/19 12:23 01/03/19 12:23 01/03/19 12:23 01/03/19 12:23 Intake & Output 01/02/19 01/03/19 01/04/19 06:59 06:59 06:59 Intake Total 1231 708 Output Total 1725 1275 Balance -494 -567 Weight 81.7 kg 78.9 kg General appearance: PRESENT: no acute distress, well-developed, well-nourished - overweight Head exam: PRESENT: atraumatic, normocephalic Eye exam: PRESENT: conjunctiva pink, EOMI, PERRLA. ABSENT: scleral icterus Mouth exam: PRESENT: moist, tongue midline Neck exam: ABSENT: carotid bruit, JVD, lymphadenopathy, thyromegaly Respiratory exam: PRESENT: clear to auscultation fredi, symmetrical, unlabored. ABSENT: rales, rhonchi, wheezes Cardiovascular exam: PRESENT: RRR, +S1, +S2. ABSENT: diastolic murmur, rubs, sy stolic murmur Pulses: PRESENT: normal dorsalis pedis pul Vascular exam: PRESENT: normal capillary refill GI/Abdominal exam: PRESENT: normal bowel sounds, soft. ABSENT: distended, guarding, mass, organolmegaly, rebound, tenderness Rectal exam: PRESENT: deferred Extremities exam: PRESENT: other - flaccid RUE. ABSENT: calf tenderness, clubbing, pedal edema Musculoskeletal exam: PRESENT: ambulatory - 10' w/ walker and minimum assistance Neurological exam: PRESENT: alert, awake, oriented to person, oriented to place, oriented to time, oriented to situation, CN II-XII grossly intact, other - Slight lt facial droop and slurred speach (improved from yesterday), RUE 0/5 rn lactation consultant strength, RLE 3/5 dorsiflexion. ABSENT: motor sensory deficit Psychiatric exam: PRESENT: agitated. ABSENT: homicidal ideation, suicidal ideation Skin exam: PRESENT: dry, intact, warm. ABSENT: cyanosis, rash Results Laboratory Results: 01/03/19 03:01 01/03/19 03:01 01/03/19 01/03/19 03:01 03:01 WBC 11.8 H RBC 5.72 H Hgb 17.6 H D Hct 51.9 H MCV 91 MCH 30.7 MCHC 33.9 RDW 14.1 H Plt Count 233 Sodium 140.0 Potassium 3.9 Chloride 98 Carbon Dioxide 27 Anion Gap 15 BUN 15 Creatinine 1.00 Est GFR ( Amer) > 60 Est GFR (Non-Af Amer) > 60 Glucose 169 H Calcium 11.0 H 01/01/19 01/01/19 01/02/19 05:35 05:35 12:36 Creatine Kinase 88 CK-MB (CK-2) 0.88 Troponin I 0.016 0.018 Impressions: Chest X-Ray 01/01/19 05:32 IMPRESSION: Negative chest copyright 2010 [employer]- All Rights Reserved Head CT 01/01/19 05:32 IMPRESSION: Age indeterminate lacunar infarct anterior limb left internal capsule. Atrophy. Small vessel ischemic change. TECHNICAL DOCUMENTATION: Quality ID # 436: Final reports with documentation of one or more dose reduction techniques (e.g., Automated exposure control, adjustment of the mA and/or kV according to patient size, use of iterative reconstruction technique) copyright 2010 [employer]- All Rights Reserved Head MRI 01/01/19 12:25 IMPRESSION: Positive for an area of approximately 1.7 cm acute or sub-acute infarction in the left frontotemporal periventricular white matter with some involvement of the posterior limb of the internal capsule. EVIDENCE OF ACUTE STROKE: YES. LEFT MCA. Carotid Doppler Study 01/01/19 14:37 IMPRESSION: NO HEMODYNAMICALLY SIGNIFICANT STENOSIS. Assessment and Plan - Diagnosis (1) Acute CVA (cerebrovascular accident) Is this a current diagnosis for this admission?: Yes Plan: Patient with onset of slurred speech and right-sided weakness. Head CT and MRI reveal a left territory MCA acute to subacute infarction. Carotid Doppler is negative for hemodynamically significant stenosis. Patient is admitted to [facility] on continuous cardiac telemetry. Allowing for permissive hypertension; the ED provider did note significant increase in symptomology with even minimal blood pressure reduction. Continue gradual blood pressure reduction today; IV Vasotec as needed for SBP>180, DBP>90 Daily aspirin, high-dose statin therapy. PT/OT/ST consultations. Dr. Horace Hurst is consulted. Discharge planning is consulted. 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 Accu-Cheks before meals and at bedtime with Humalog for sliding scale coverage. Start Lantus qHS Hold home dose of metformin while inpatient. Hypoglycemia protocol. Registered dietitian and the patient educator consulted. (3) Hypertension Qualifiers: Hypertension type: essential hypertension Qualified Code(s): I10 - Essential (primary) hypertension Is this a current diagnosis for this admission?: Yes Plan: Patient endorses a history of hypertension; reports that he has been off of his blood pressure medications for at least one year. On admission is found to have blood pressures 200/100. ED provider noted significant increase in patient's symptomology with slight reduction in blood pressures. Have allowed for permissive hypertension secondary to acute CVA. IV Vasotec as needed for SBP >180 and DBP>90. Continue lisinopril 10 mg. Start Amlodipine 5 mg dailu Continue gradual reduction each day. Cardiac diet. (4) Tobacco dependence Is this a current diagnosis for this admission?: Yes Plan: Smoking cessation strongly encouraged. Nicotine replacement therapies are provided. (5) Hyperlipidemia Is this a current diagnosis for this admission?: Yes Plan: LDL 145, HDL 54, Triglycerides 181, TChol 229 Cardiac diet. Continue high dose statin. - Time Time Spent with patient: 15-24 minutes - Inpatient Certification Based on my medical assessment, after consideration of the patient's comorbidities, presenting symptoms, or acuity I expect that the services needed warrant INPATIENT care.: Yes I certify that my determination is in accordance with my understanding of Medicare's requirements for reasonable and necessary INPATIENT services [42 CFR 412.3e].: Yes Medical Necessity: Need For Continuous Telemetry Monitoring, Risk of Complication if Not Cared For in Hospital
--- NOTE | 2019-01-03 14:48 | Physical Med & Rehab Consult ---
Consultation Consult Date: 01/03/19 Consult reason:: Evaluation for admission to acute inpatient rehabilitation History of Present Illness Admission Date/PCP: 01/01/19 14:22 Patient complains of: Right-sided weakness and coordination deficits History of Present Illness: VICK RODRIGUEZ is a 59-year-old right-handed male with past medical history of hypertension, hyperlipidemia, diabetes mellitus type 2 with diabetic neuropathy, hepatitis C (post treatment with Harvoni) and no past surgical h istory admitted to [facility] on 01/01/2019 after presenting with progressively worsening right-sided weakness and slurred speech and being found to have a hypertensive emergency (BP of 212/107) with CT head demonstrating age indeterminate lacunar infarct in the anterior limb of the left internal capsule with atrophy and small vessel ischemic changes as well as MRI of the brain demonstrating 1.7 cm acute to subacute infarction of the left frontal temporal periventricular white matter with some involvement of the posterior limb of the internal capsule; left MCA acute CVA. He was admitted for further work-up, which demonstrated no hemodynamically significant stenosis on carotid duplex, hemoglobin A1c of 11.5%, total cholesterol of 230, and LDL of 145. Echocardiogram is pending. The patient was started on aspirin 81 mg daily and atorvastatin 80 mg nightly for secondary stroke prophylaxis as well as insulin therapy for his uncontrolled diabetes mellitus. He is being treated with permissive hypertension, and his blood pressure is being slowly normalized. Additionally, the latest laboratory results demonstrate elevated H&H of 17.6/51.9%. Physical medicine and rehabilitation consultation was requested to evaluate the patient for admission to acute inpatient rehabilitation. Today, the patient was seen and examined with his and son at bedside. He complains of flaccid right upper extremity weakness and poor coordination with the right lower extremity. He has not had a bowel movement since admission 2 days ago, but he denies trouble with urination. Past Medical History Cardiac Medical History: Reports: Hyperlipidema, Hypertension Denies: Coronary Artery Disease, Myocardial Infarction Pulmonary Medical History: Denies: Asthma, Bronchitis, Chronic Obstructive Pulmonary Disease (COPD), Pn eumonia Neurological Medical History: Denies: Ischemic CVA, Seizures Endocrine Medical History: Reports: Diabetes Mellitus Type 2 Renal/ Medical History: Reports: None GI Medical History: Reports: Hepatitis - Hep C Musculoskeltal Medical History: Denies: Arthritis Psychiatric Medical History: Reports: Tobacco Dependency Hematology: Reports: Anemia Past Surgical History Past Surgical History: Reports: None Social History Lives with: Spouse/Significant other Smoking Status: Current Every Day Smoker Cigarettes Packs Per Day: 1 Frequency of Alcohol Use: Occasional Hx Recreational Drug Use: No Drugs: None Hx Prescription Drug Abuse: No Past Social History Note: Vick Rodriguez lives with his in a 1 level home with 2 steps to enter and 0 steps to the bedroom and bathroom. He admits to smoking 1 pack every 3 days and has done so for many years, and he drinks either beer or liquor every other day. Prior Functional Status: Active and independent with mobility and all ADLs. Ambulates without an assist device. Current Functional Status: Per therapy notes, the patient currently requires standby assistance for bed mobility, minimum assistance of 2 people for transfers, minimum assistance of 2 people for ambulation of 10 feet with a hemiwalker, minimum assistance for upper body dressing, maximum assistance for lower body dressing, and dependent assistance for toileting. Family History: The patient does not know of any medical issues with his family. - Advance Directive Resuscitation Status: Full Code Family History Family History: Reviewed & Not Pertinent Parental Family History Reviewed: Yes Children Family History Reviewed: Yes Sibling(s) Family History Reviewed.: Yes Medication/Allergy Home Medications: No Home Medications 01/01/19 Allergies/Adverse Reactions: acetaminophen [From Tylenol 8 Hour] Adverse Reaction (Unknown, Verified 11/12/16 07:13) Review of Systems Review of Systems: Constitutional: No fevers, chills, sweats, weight loss Eye: No recent visual problems, no blurry vision, no double vision ENMT: No ear pain, nasal congestion, sore throat Respiratory: No shortness of breath, cough, sputum production Cardiovascular: No chest pain, palpitations, syncope Gastrointestinal: No nausea, vomiting, diarrhea, abdominal pain. Positive for constipation. Genitourinary: No hematuria, dysuria, flank or suprapubic pain Sabas/Lymph: Negative for bruising tendency, swollen lymph glands Endocrine: Negative for excessive thirst, excessive hunger, extreme fatigue Musculoskeletal: No back pain, neck pain, joint pain, muscle pain, decreased range of motion Integumentary: No rash, pruritus, abrasions Neurologic: Positive for focal weakness and coordination deficits of the right- sided extremities. Psychiatric: He is distraught over the loss of use of his right-sided extrem ities. Physical Exam Vital Signs: Temp Pulse Resp BP Pulse Ox 98.1 F 105 H 16 162/104 H 95 01/03/19 12:23 01/03/19 14:00 01/03/19 12:23 01/03/19 12:23 01/03/19 12:23 Intake & Output 01/02/19 01/03/19 01/04/19 06:59 06:59 06:59 Intake Total 1231 708 Output Total 1725 1275 Balance -494 -567 Weight 81.7 kg 78.9 kg Exam: General: Awake and Alert. No acute distress. Resting comfortably in bed with his and son at bedside. Head: Normocephalic. Atraumatic. Eyes: Pupils equal, round, and reactive to light. EOMI. Sclera white. Ears: No drainage noted. Nose: Nares normal & without exudate. Oropharynx: Moist mucous membranes. Neck: Supple movements. Cardiovascular: Regular rate & rhythm. No murmurs, rubs, or gallops appreciated. Pulmonary: Lungs clear to auscultation bilaterally. No increased work of breathing. Gastrointestinal: Abdomen soft, non-tender, non-distended. Normoactive bowel sounds. Skin: Texture and turgor normal. Warm and dry. Psychiatric: Judgement and insight appear to be fair. Patient is oriented to date, location, and situation. Initially, he appeared to be distraught and angry over his situation, but he was pleasant and cooperative at the end of the interview and for the exam. Extremities: No clubbing, cyanosis, or inflammatory changes. Neurological: CN III-XII grossly intact, except right lower facial droop. Sensation to light touch is grossly intact. Tone is flaccid in the right upper extremity. Proprioception is normal. No Rogers's. No Babinski. Speech is fluent with good content but with mild dysarthria. Muscle Strength: Full 5/5 strength in all major muscle groups of the left-sided extremities. He has 4/5 strength of the major muscle groups of the right lower extremity and 0/5 strength of the major muscle groups of the right upper extremity. Results Laboratory Results: 01/03/19 03:01 01/03/19 03:01 01/03/19 01/03/19 03:01 03:01 WBC 11.8 H RBC 5.72 H Hgb 17.6 H D Hct 51.9 H MCV 91 MCH 30.7 MCHC 33.9 RDW 14.1 H Plt Count 233 Sodium 140.0 Potassium 3.9 Chloride 98 Carbon Dioxide 27 Anion Gap 15 BUN 15 Creatinine 1.00 Est GFR ( Amer) > 60 Est GFR (Non-Af Amer) > 60 Glucose 169 H Calcium 11.0 H 01/01/19 01/01/19 01/02/19 05:35 05:35 12:36 Creatine Kinase 88 CK-MB (CK-2) 0.88 Troponin I 0.016 0.018 Impressions: Chest X-Ray 01/01/19 05:32 IMPRESSION: Negative chest copyright 2010 [employer]- All Rights Reserved Head CT 01/01/19 05:32 IMPRESSION: Age indeterminate lacunar infarct anterior limb left internal capsule. Atrophy. Small vessel ischemic change. TECHNICAL DOCUMENTATION: Quality ID # 436: Final reports with documentation of one or more dose reduction techniques (e.g., Automated exposure control, adjustment of the mA and/or kV according to patient size, use of iterative reconstruction technique) copyright 2010 [employer]- All Rights Reserved Head MRI 01/01/19 12:25 IMPRESSION: Positive for an area of approximately 1.7 cm acute or sub-acute infarction in the left frontotemporal periventricular white matter with some involvement of the posterior limb of the internal capsule. EVIDENCE OF ACUTE STROKE: YES. LEFT MCA. Carotid Doppler Study 01/01/19 14:37 IMPRESSION: NO HEMODYNAMICALLY SIGNIFICANT STENOSIS. Assessment and Plan - Plan Summary Plan Summary: 59-year-old male with CVA resulting in right hemiparesis (dominant). 1. Gait and ADL Dysfunction secondary to CVA resulting in right hemiparesis (dominant). - Continue PT and OT to maximize mobility, safety, endurance, and self-care. 2. CVA resulting in right hemiparesis (dominant) - Needs continued PT & OT & SPEECH WRITER to maximize functional mobility, safety and self-care as well as communication needs & swallow function. Risk Factor Modification: - Hypertension: Dietary and activity modifications, avoid hypotension and hypertension. Continue slow normalization of blood pressure per hospitalist enid peña. - Glycemic Control: HgBA1c = 11.5%, continue dietary and activity modifications, SSI, avoid hyperglycemia and hypoglycemia - Lipids: LDL is 145, continue dietary and activity modifications, continue statin - Smoking: Discussed smoking cessation - Alcohol: Discussed the need to cut down on alcohol intake - Antiplatelet: Continue aspirin 81 mg daily - Cardioembolic Event: Echocardiogram is pending - Vascular: No hemodynamically significant stenosis on carotid duplex. Dysphagia: - Bedside swallow evaluation completed. - Continue regular solids with thin liquids diet - Aspiration precautions, dysphagia diet, SPEECH WRITER following. VTE Prophylaxis: - Continue SQ heparin Risk of Shoulder Subluxation: - Educate patient and family on positioning. - Lap tray, if needed. Risk of Spasticity: - Continue ROM, positioning. - The patient has flaccid tone of the right upper extremity. Risk of Contractures: - Continue ROM, positioning. Risk of Constipation: - Continue dietary modifications and encourage fluid intake. - Bowel protocol: Colace 100 mg twice daily, MiraLAX 1 packet daily, and o'clock suppository daily as needed for constipation. Risk of Neurogenic Bladder/UTI: - Monitor for retention, incontinence, UTI. Risk of Skin Breakdown: - Frequent turning/position changes. - Optimize nutritional status. 3. Diabetes mellitus type 2 with diabetic neuropathy - Continue carbohydrate controlled diet and insulin therapy per hospitalist medicine - Hemoglobin A1c is 11.5% 4. Polycythemia - Recommend repeating CBC and consulting hematology for evaluation if elevated H&H is confirmed (discussed with Julieth Mclaughlin). 5. Disposition - Based on the patient's diagnosis, medical co-morbidities, and current functional status, he is a good candidate for acute inpatient rehabilitation as he would benefit from 3 hours per day of intensive therapies in at least 2 disciplines under the close medical supervision of a physician. The patient is expected to make significant gains in a relatively short period of time to the point that he can safely be discharged home with supervision and assistance from family. A request for insurance preauthorization will be submitted today, and, barring any unforeseen events or complications, there is a plan to admit the patient to acute inpatient rehabilitation at [facility] in [place] on either , 01/05/2019, or 01/06/2019. This case was discussed with the patient's acute care therapists, nurse on the floor, management planner, and admission coordinator at [facility]. Thank you for allowing us to participate in the care of this patient. Please call with any questions. A total of 80 minutes was spent on [id number] communication with the patient and coordination of care.
[2019-01-03 15:39] LABS: HEMATOCRIT 48.9 % (37.9-51.0); HEMOGLOBIN 16.2 g/dL (13.5-17.0); MEAN CORPUSCULAR HEMOGLOBIN 30.2 pg (27.0-33.4); MEAN CORPUSCULAR HGB CONC 33.2 g/dL (32.0-36.0); MEAN CORPUSCULAR VOLUME 91 fl (80-97); PLATELET COUNT 239 10^3/uL (150-450); RED BLOOD COUNT 5.38 10^6/uL (4.35-5.55); WHITE BLOOD COUNT 10.2 10^3/uL (4.0-10.5)
[2019-01-03] MEDS: ATORVASTATIN CALCIUM 80 MG TABLET PO SCH (21:55)
[2019-01-03] MEDS: INSULIN GLARGINE,HUM.REC.ANLOG 1,000 UNIT/10 ML VIAL SUBCUT SCH (21:55)
[2019-01-04] MEDS: HEPARIN SOD (PORCINE) 5,000 UNIT/ML 1 ML SYRINGE SUBCUT SCH ×3 (05:07→21:49)
[2019-01-04 06:19] LABS: HEMATOCRIT 49.3 % (37.9-51.0); HEMOGLOBIN 16.7 g/dL (13.5-17.0); MEAN CORPUSCULAR HEMOGLOBIN 30.5 pg (27.0-33.4); MEAN CORPUSCULAR HGB CONC 33.9 g/dL (32.0-36.0); MEAN CORPUSCULAR VOLUME 90 fl (80-97); PLATELET COUNT 230 10^3/uL (150-450); RED BLOOD COUNT 5.47 10^6/uL (4.35-5.55); RED CELL DISTRIBUTION WIDTH 14.1 % (11.5-14.0); WHITE BLOOD COUNT 11.2 10^3/uL (4.0-10.5)
[2019-01-04 06:47] LABS: ANION GAP 15 (5-19); BLOOD UREA NITROGEN 30 mg/dL (7-20); CALCIUM 10.6 mg/dL (8.4-10.2); CARBON DIOXIDE 26 mmol/L (22-30); CHLORIDE 99 mmol/L (98-107); GLUCOSE 201 mg/dL (75-110); SODIUM 139.8 mmol/L (137-145)
[2019-01-04] MEDS: INSULIN LISPRO 100 UNIT/ML 3 ML VIAL SUBCUT SCH ×4 (08:09→21:49)
[2019-01-04] MEDS ORDERED: NORMAL SALINE 1000 ML 1,000 ML IV PRN (08:16)
[2019-01-04] MEDS: FAMOTIDINE 20 MG TABLET PO SCH ×2 (10:03→21:49)
[2019-01-04] MEDS: AMLODIPINE BESYLATE 5 MG TABLET PO SCH (10:03)
[2019-01-04] MEDS: ASPIRIN 81 MG TABLET, ENT COATED PO SCH (10:03)
[2019-01-04] MEDS: FLUOXETINE HCL 20 MG CAPSULE PO SCH (10:03)
[2019-01-04] MEDS: POLYETHYLENE GLYCOL 3350 POWDER 17 GM/1 PACKET PO SCH (10:06)
[2019-01-04] MEDS ORDERED: HYDRALAZINE HCL INJ/PF 20 MG/1 ML SDV IV PRN (15:41)
--- NOTE | 2019-01-04 15:45 | PDOC PROGRESS REPORT ---
Subjective Progress Note for:: 01/04/19 Subjective:: LEONILA RODRIGUEZ is a 59 year old male with a past medical history of hypertension, hyperlipidemia, type 2 diabetes mellitus, and hepatitis C (post treatment with Harvoni) who was admitted 01/01/2019 with an acute left territory MCA infarction. Patient was seen on morning rounds with son present. He was found resting in bed comfortably on room air. He is alert and oriented x4, clear speech, slight left-sided facial droop and continued flaccid paralysis of his right upper arm. Patient does note that he has had spontaneous movements of the right upper extremity but no intentional movements. Manager Cosmetics remains 0/5. He is encouraged by his ability to ambulate short distances with a hemiwalker; was up to the restroom with 2 person assist this morning. He denies fever, chills, headache, dizziness, blurred vision, chest pain, palpitations, orthopnea, dyspnea, cough, abdominal pain, nausea vomiting and diarrhea. He has no questions or concerns at this time. No concerns per nursing. Reason For Visit: ACUTE LEFT MCA,CVA Physical Exam Vital Signs: Temp Pulse Resp BP Pulse Ox 97.7 F 105 H 18 137/94 H 96 01/04/19 11:53 01/04/19 11:53 01/04/19 11:53 01/04/19 11:53 01/04/19 11:53 Intake & Output 01/03/19 01/04/19 01/05/19 06:59 06:59 06:59 Intake Total 708 177 Output Total 1275 Balance -567 177 Weight 78.9 kg 75.3 kg General appearance: PRESENT: no acute distress, well-developed, well-nourished Head exam: PRESENT: atraumatic, normocephalic Eye exam: PRESENT: conjunctiva pink, EOMI, PERRLA. ABSENT: scleral icterus Ear exam: PRESENT: normal external ear exam Mouth exam: PRESENT: moist, tongue midline Neck exam: ABSENT: carotid bruit, JVD, lymphadenopathy, thyromegaly Respiratory exam: PRESENT: clear to auscultation fredi, symmetrical, unlabored. ABSENT: rales, rhonchi, wheezes Cardiovascular exam: PRESENT: RRR, +S1, +S2. ABSENT: diastolic murmur, rubs, systolic murmur Pulses: PRESENT: normal dorsalis pedis pul Vascular exam: PRESENT: normal capillary refill GI/Abdominal exam: PRESENT: normal bowel sounds, soft. ABSENT: distended, gu arding, mass, organolmegaly, rebound, tenderness Rectal exam: PRESENT: deferred Extremities exam: PRESENT: other - Limited range of motion right lower extremity, flaccid paralysis (though with some spontaneous movements) right upper extremity). ABSENT: calf tenderness, clubbing, pedal edema Neurological exam: PRESENT: alert, awake, oriented to person, oriented to place, oriented to time, oriented to situation, CN II-XII grossly intact, other - Slight left-sided facial droop, right station air traffic control specialist 0/5, right dorsiflexion 3/5; unch anged from yesterday.. ABSENT: motor sensory deficit Psychiatric exam: PRESENT: agitated, appropriate affect, normal mood. ABSENT: homicidal ideation, suicidal ideation Skin exam: PRESENT: dry, intact, warm. ABSENT: cyanosis, rash Results Laboratory Results: 01/04/19 05:49 01/04/19 05:49 01/03/19 01/04/19 01/04/19 15:29 05:49 05:49 WBC 10.2 11.2 H RBC 5.38 5.47 Hgb 16.2 16.7 Hct 48.9 49.3 MCV 91 90 MCH 30.2 30.5 MCHC 33.2 33.9 RDW 14.0 14.1 H Plt Count 239 230 Sodium 139.8 Potassium 4.0 Chloride 99 Carbon Dioxide 26 Anion Gap 15 BUN 30 H Creatinine 1.58 H Est GFR ( Amer) 54 L Est GFR (Non-Af Amer) 45 L Glucose 201 H Calcium 10.6 H 01/01/19 01/01/19 01/02/19 05:35 05:35 12:36 Creatine Kinase 88 CK-MB (CK-2) 0.88 Troponin I 0.016 0.018 Impressions: Chest X-Ray 01/01/19 05:32 IMPRESSION: Negative chest copyright 2011 [employer]- All Rights Reserved Head CT 01/01/19 05:32 IMPRESSION: Age indeterminate lacunar infarct anterior limb left internal capsule. Atrophy. Small vessel ischemic change. TECHNICAL DOCUMENTATION: Quality ID # 436: Final reports with documentation of one or more dose reduction techniques (e.g., Automated exposure control, adjustment of the mA and/or kV according to patient size, use of iterative reconstruction technique) copyright 2011 [employer]- All Rights Reserved Head MRI 01/01/19 12:25 IMPRESSION: Positive for an area of approximately 1.7 cm acute or sub-acute infarction in the left frontotemporal periventricular white matter with some involvement of the posterior limb of the internal capsule. EVIDENCE OF ACUTE STROKE: YES. LEFT MCA. Carotid Doppler Study 01/01/19 14:37 IMPRESSION: NO HEMODYNAMICALLY SIGNIFICANT STENOSIS. Assessment and Plan - Diagnosis (1) Acute CVA (cerebrovascular accident) Is this a current diagnosis for this admission?: Yes Plan: Patient with onset of slurred speech and right-sided weakness. Head CT and MRI reveal a left territory MCA acute to subacute infarction. Carotid Doppler is negative for hemodynamically significant stenosis. Patient is admitted to [facility] on continuous cardiac telemetry. Allowed for permissive HTN; have gradually decreased BP. Today 137/94 Daily aspirin, high-dose statin therapy. PT/OT/ST consultations. Dr. Horace Hurst is consulted; has accepted patient pending insurance pre- authorization. Discharge planning is consulted. (2) DM type 2 (diabetes mellitus, type 2) Qualifiers: Diabetes mellitus terminal superintendent insulin use: without terminal superintendent use Diabetes mellitus complication status: with hyperglycemia Qualified Code(s): E11.65 - Type 2 diabetes mellitus with hyperglycemia Is this a current diagnosis for this admission?: Yes Plan: A1C 11.5% Patient is placed on a consistent carb/cardiac diet. Accu-Cheks before meals and at bedtime with Humalog for sliding scale coverage. Start Lantus qHS; have increased to 10 units nightly Hold home dose of metformin while inpatient. Hypoglycemia protocol. Registered dietitian and the patient educator consulted. (3) Hypertension Qualifiers: Hypertension type: essential hypertension Qualified Code(s): I10 - Essential (primary) hypertension Is this a current diagnosis for this admission?: Yes Plan: Patient endorses a history of hypertension; reports that he has been off of his blood pressure medications for at least one year. On admission is found to have blood pressures 200/100. ED provider noted significant increase in patient's symptomology with slight reduction in blood pressures. Have allowed for permissive hypertension secondary to acute CVA. Questionable allergic reaction to lisinopril and enalapril yesterday (report of lip swelling that rapidly resolved). Have discontinued lisinopril and enalapril. Continue Amlodipine 5 mg daily Start hydrochlorothiazide 12.5 mg every morning. IV hydralazine as needed for blood pressure control. Cardiac diet. (4) Tobacco dependence Is this a current diagnosis for this admission?: Yes Plan: Smoking cessation strongly encouraged. Nicotine replacement therapies are provided. (5) Hyperlipidemia Is this a current diagnosis for this admission?: Yes Plan: LDL 145, HDL 54, Triglycerides 181, TChol 229 Cardiac diet. Continue high dose statin. (6) SALENA (acute kidney injury) Is this a current diagnosis for this admission?: Yes Plan: Cr on admission is 1.12; increased to 1.58 today Likely multifactorial secondary to hypertension, lisinopril and enalapril use. Hypertension is much improved today. MILO inhibitors have been discontinued. We will provide gentle IV fluids. Continue avoid nephrotoxic medications. Monitor daily chemistry. - Time Time Spent with patient: 15-24 minutes Medications reviewed and adjusted accordingly: Yes Anticipated discharge: Hospice Within: when bed available - pending insurance approval
--- NOTE | 2019-01-04 20:18 | XCELERA REPORT ---
[address] [address] Transthoracic Echocardiogram Report Name: LEONILA RODRIGUEZ Age: 59 yrs Gender: Male : 1960 Patient Status: Inpatient Patient Location: [address] [place], [place] [address] Study Date: 01/03/2019 02:05 PM Height: 69 in Weight: 173 lb BSA: 1.9 m2 Procedure: A two-dimensional transthoracic echocardiogram with color flow and Doppler was performed. Study Quality: Fair. Reason For Study: HISTORY OF CVA History: HISTORY OF CVA. Ordering Physician: SHIRLEY FERGUSON Performed By: Daniella Cochran Interpretation Summary There is no obvious cardiac source of embolus noted on this transthoracic echocardiogram. Follow-up with a DAMARIS is suggested if cardiac source is still suspected. The left ventricle is normal in size. There is normal left ventricular wall thickness. LV EF is > THAN 55% Left ventricular systolic function is normal. Doppler measurements suggest normal left ventricular diastolic function The left ventricular wall motion is normal. There is no thrombus. No ASD,VSD,or PFO The right ventricle is normal in size and function. The right atrium is normal. The left atrial size is normal. There is no evidence of mitral valve prolapse. There is no vegetation seen on the mitral valve. There is no mitral valve stenosis. There is no mitral regurgitation noted. There is no aortic valvular vegetation. There is no aortic valve stenosis There is no LVOT obstruction. No aortic regurgitation is present. There is no tricuspid stenosis. No tricuspid regurgitation. Unable to calculate RVSP due to lack of TR jet. There is no pulmonic valvular stenosis. There is no pulmonic valvular regurgitation. The aortic root is normal size. The inferior vena cava appeared small and collapsed with respiration (RAP 0-5 mmHg) There is no pericardial effusion. There is no obvious cardiac source of embolus noted on this transthoracic echocardiogram. Follow-up with a DAMARIS is suggested if cardiac source is still suspected MMode/2D Measurements & Calculations IVSd: 0.92 cm LVIDd: 4.2 cm FS: 24.5 % Ao root diam: 2.6 cm LVIDs: 3.1 cm EDV(Teich): 76.5 ml Ao root area: 5.5 cm2 LVPWd: 0.92 cm ESV(Teich): 38.9 ml EF(Teich): 49.1 % Doppler Measurements & Calculations MV E max jesus: MV dec slope: Ao V2 max: LV V1 max P.6 cm/sec 936.5 cm/sec2 93.4 cm/sec 1.3 mmHg MV A max jesus: MV dec time: 0.11 sec Ao max PG: LV V1 max: 54.0 cm/sec 3.5 mmHg 57.1 cm/sec MV E/A: 1.8 PA V2 max: 61.3 cm/sec PA max P.5 mmHg Left Ventricle The left ventricle is normal in size. There is normal left ventricular wall thickness. LV EF is > THAN 55%. Left ventricular systolic function is normal. Doppler measurements suggest normal left ventricular diastolic function. The left ventricular wall motion is normal. There is no thrombus. No ASD,VSD,or PFO. Right Ventricle The right ventricle is normal in size and function. The right ventricle is not well visualized secondary to technical limitations. Atria The right atrium is normal. The left atrial size is normal. Mitral Valve There is no evidence of mitral valve prolapse. There is no vegetation seen on the mitral valve. There is no mitral valve stenosis. There is no mitral regurgitation noted. Aortic Valve There is no aortic valvular vegetation. There is no aortic valve stenosis. There is no LVOT obstruction. No aortic regurgitation is present. Tricuspid Valve There is no tricuspid stenosis. No tricuspid regurgitation. Unable to calculate RVSP due to lack of TR jet. Pulmonic Valve There is no pulmonic valvular stenosis. There is no pulmonic valvular regurgitation. Great Vessels The aortic root is normal size. The inferior vena cava appeared small and collapsed with respiration (RAP 0-5 mmHg). Effusions There is no pericardial effusion. : SHIRLEY FERGUSON > Francesca Mcneil
[2019-01-04] MEDS: ATORVASTATIN CALCIUM 80 MG TABLET PO SCH (21:49)
[2019-01-04] MEDS: INSULIN GLARGINE,HUM.REC.ANLOG 1,000 UNIT/10 ML VIAL SUBCUT SCH (21:49)
[2019-01-05] MEDS: HEPARIN SOD (PORCINE) 5,000 UNIT/ML 1 ML SYRINGE SUBCUT SCH ×3 (05:02→22:20)
[2019-01-05 06:04] LABS: HEMATOCRIT 46.9 % (37.9-51.0); MEAN CORPUSCULAR HEMOGLOBIN 30.8 pg (27.0-33.4); MEAN CORPUSCULAR HGB CONC 34.1 g/dL (32.0-36.0); MEAN CORPUSCULAR VOLUME 90 fl (80-97); PLATELET COUNT 206 10^3/uL (150-450); RED BLOOD COUNT 5.19 10^6/uL (4.35-5.55); RED CELL DISTRIBUTION WIDTH 13.6 % (11.5-14.0); WHITE BLOOD COUNT 9.9 10^3/uL (4.0-10.5)
[2019-01-05 06:24] LABS: ANION GAP 12 (5-19); BLOOD UREA NITROGEN 30 mg/dL (7-20); CALCIUM 10.4 mg/dL (8.4-10.2); CARBON DIOXIDE 25 mmol/L (22-30); CHLORIDE 100 mmol/L (98-107); GLUCOSE 219 mg/dL (75-110)
[2019-01-05] MEDS ORDERED: HYDROCHLOROTHIAZIDE 12.5 MG TABLET PO SCH (09:00)
[2019-01-05] MEDS: INSULIN LISPRO 100 UNIT/ML 3 ML VIAL SUBCUT SCH ×4 (09:22→22:17)
[2019-01-05] MEDS: AMLODIPINE BESYLATE 5 MG TABLET PO SCH (09:29)
[2019-01-05] MEDS: ASPIRIN 81 MG TABLET, ENT COATED PO SCH (09:29)
[2019-01-05] MEDS: FLUOXETINE HCL 20 MG CAPSULE PO SCH (09:29)
[2019-01-05] MEDS: FAMOTIDINE 20 MG TABLET PO SCH ×2 (09:30→22:24)
[2019-01-05] MEDS: POLYETHYLENE GLYCOL 3350 POWDER 17 GM/1 PACKET PO SCH (09:30)
--- NOTE | 2019-01-05 15:26 | PDOC PROGRESS REPORT ---
Subjective Progress Note for:: 01/05/19 Subjective:: LEONILA RODRIGUEZ is a 59 year old male with a past medical history of hypertension, hyperlipidemia, type 2 diabetes mellitus, and hepatitis C (post treatment with Harvoni) who was admitted 01/01/2019 with an acute left territory MCA infarction. Patient was seen on morning rounds with family present. He was found resting in bed comfortably on room air. He is alert and oriented x4, clear speech, slight left-sided facial droop and continued flaccid paralysis of his right upper arm. Right House Worker General remains 0/5. He is encouraged by his ability to ambulate short distances with a hemiwalker; but frustrated w/ insurance prior authorization requirements for acute rehabilitation. He denies fever, chills, headache, dizziness, blurred vision, chest pain, palpitations, orthopnea, dyspnea, cough, abdominal pain, nausea vomiting and diarrhea. He has no other questions or concerns at this time. No concerns per nursing. Reason For Visit: ACUTE LEFT MCA,CVA Physical Exam Vital Signs: Temp Pulse Resp BP Pulse Ox 97.5 F 84 16 137/91 H 98 01/04/19 19:42 01/05/19 14:00 01/04/19 19:42 01/04/19 19:42 01/04/19 19:42 Intake & Output 01/04/19 01/05/19 01/06/19 06:59 06:59 06:59 Intake Total 177 1302 Balance 177 1302 Weight 75.3 kg 79.1 kg General appearance: PRESENT: no acute distress, well-developed, well-nourished Head exam: PRESENT: atraumatic, normocephalic Eye exam: PRESENT: conjunctiva pink, EOMI, PERRLA. ABSENT: scleral icterus Ear exam: PRESENT: normal external ear exam Mouth exam: PRESENT: moist, tongue midline Neck exam: ABSENT: carotid bruit, JVD, lymphadenopathy, thyromegaly Respiratory exam: PRESENT: clear to auscultation fredi, symmetrical, unlabored. ABSENT: rales, rhonchi, wheezes Cardiovascular exam: PRESENT: RRR, +S1, +S2. ABSENT: diastolic murmur, rubs, systolic murmur Pulses: PRESENT: normal dorsalis pedis pul Vascular exam: PRESENT: normal capillary refill GI/Abdominal exam: PRESENT: normal bowel sounds, soft. ABSENT: distended, guarding, mass, organolmegaly, rebound, tenderness Rectal exam: PRESENT: deferred Extremities exam: PRESENT: other - Limited range of motion right lower extremity, flaccid paralysis (though with some spontaneous movements) right upper extremity. ABSENT: calf tenderness, clubbing, pedal edema Neurological exam: PRESENT: alert, awake, oriented to person, oriented to place, oriented to time, oriented to situation, CN II-XII grossly intact, other - Slight left-sided facial droop (improved), right kinesiotherapist 0/5, right dorsiflexion 3/5. ABSENT: motor sensory deficit Psychiatric exam: PRESENT: appropriate affect, normal mood. ABSENT: homicidal ideation, suicidal ideation Skin exam: PRESENT: dry, intact, warm. ABSENT: cyanosis, rash Results Laboratory Results: 01/05/19 05:33 01/05/19 05:33 01/05/19 01/05/19 05:33 05:33 WBC 9.9 RBC 5.19 Hgb 16.0 Hct 46.9 MCV 90 MCH 30.8 MCHC 34.1 RDW 13.6 Plt Count 206 Sodium 137.0 Potassium 4.0 Chloride 100 Carbon Dioxide 25 Anion Gap 12 BUN 30 H Creatinine 1.59 H Est GFR ( Amer) 54 L Est GFR (Non-Af Amer) 44 L Glucose 219 H Calcium 10.4 H 01/01/19 01/01/19 01/02/19 05:35 05:35 12:36 Creatine Kinase 88 CK-MB (CK-2) 0.88 Troponin I 0.016 0.018 Impressions: Chest X-Ray 01/01/19 05:32 IMPRESSION: Negative chest copyright 2010 [employer]- All Rights Reserved Head CT 01/01/19 05:32 IMPRESSION: Age indeterminate lacunar infarct anterior limb left internal capsule. Atrophy. Small vessel ischemic change. TECHNICAL DOCUMENTATION: Quality ID # 436: Final reports with documentation of one or more dose reduction techniques (e.g., Automated exposure control, adjustment of the mA and/or kV according to patient size, use of iterative reconstruction technique) copyright 2010 [employer]- All Rights Reserved Head MRI 01/01/19 12:25 IMPRESSION: Positive for an area of approximately 1.7 cm acute or sub-acute infarction in the left frontotemporal periventricular white matter with some involvement of the posterior limb of the internal capsule. EVIDENCE OF ACUTE STROKE: YES. LEFT MCA. Carotid Doppler Study 01/01/19 14:37 IMPRESSION: NO HEMODYNAMICALLY SIGNIFICANT STENOSIS. Assessment and Plan - Diagnosis (1) Acute CVA (cerebrovascular accident) Is this a current diagnosis for this admission?: Yes Plan: Patient with onset of slurred speech and right-sided weakness. Head CT and MRI reveal a left territory MCA acute to subacute infarction. Carotid Doppler is negative for hemodynamically significant stenosis. Patient is admitted to [facility] on continuous cardiac telemetry. Allowed for permissive HTN; have gradually decreased BP. Today 139/88-145/92 Daily aspirin, high-dose statin therapy. PT/OT/ST consultations. Dr. Horace Hurst is consulted; has accepted patient pending insurance pre- authorization. Discharge planning is consulted. (2) DM type 2 (diabetes mellitus, type 2) Qualifiers: Diabetes mellitus penitentiary insulin use: without terminal operations manager use Diabetes mellitus complication status: with hyperglycemia Qualified Code(s): E11.65 - Type 2 diabetes mellitus with hyperglycemia Is this a current diagnosis for this admission?: Yes Plan: A1C 11.5% Patient is placed on a consistent carb/cardiac diet. Accu-Cheks before meals and at bedtime with Humalog for sliding scale coverage. Start Lantus qHS; have increased to 10 units nightly Hold home dose of metformin while inpatient. Hypoglycemia protocol. Registered dietitian and the patient educator consulted. (3) Hypertension Qualifiers: Hypertension type: essential hypertension Qualified Code(s): I10 - Essential (primary) hypertension Is this a current diagnosis for this admission?: Yes Plan: Patient endorses a history of hypertension; reports that he has been off of his blood pressure medications for at least one year. On admission is found to have blood pressures 200/100. ED provider noted significant increase in patient's symptomology with slight reduction in blood pressures. Have allowed for permissive hypertension secondary to acute CVA. Questionable allergic reaction to lisinopril and enalapril yesterday (report of lip swelling that rapidly resolved). Have discontinued lisinopril and enalapril. Continue Amlodipine 5 mg daily Increase to hydrochlorothiazide 25 mg every morning. IV hydralazine as needed for blood pressure control. Cardiac diet. (4) Tobacco dependence Is this a current diagnosis for this admission?: Yes Plan: Smoking cessation strongly encouraged. Nicotine replacement therapies are provided. (5) Hyperlipidemia Is this a current diagnosis for this admission?: Yes Plan: LDL 145, HDL 54, Triglycerides 181, TChol 229 Cardiac diet. Continue high dose statin. (6) SALENA (acute kidney injury) Is this a current diagnosis for this admission?: Yes Plan: Cr 1.12-> 1.58-> 1.59 Likely multifactorial secondary to hypertension, lisinopril and enalapril use. Hypertension is much improved today. MILO inhibitors have been discontinued. We will provide gentle IV fluids. Continue avoid nephrotoxic medications. Monitor daily chemistry. - Time Time Spent with patient: 15-24 minutes Medications reviewed and adjusted accordingly: Yes Anticipated discharge: Acute Rehab Within: when bed available - pending insurance approval
[2019-01-05] MEDS: INSULIN GLARGINE,HUM.REC.ANLOG 1,000 UNIT/10 ML VIAL SUBCUT SCH (22:22)
[2019-01-05] MEDS: ATORVASTATIN CALCIUM 80 MG TABLET PO SCH (22:24)
[2019-01-06] MEDS: HEPARIN SOD (PORCINE) 5,000 UNIT/ML 1 ML SYRINGE SUBCUT SCH ×2 (05:01→14:42)
[2019-01-06 06:16] LABS: ANION GAP 12 (5-19); BLOOD UREA NITROGEN 28 mg/dL (7-20); CALCIUM 10.1 mg/dL (8.4-10.2); CARBON DIOXIDE 26 mmol/L (22-30); CHLORIDE 100 mmol/L (98-107); GLUCOSE 165 mg/dL (75-110); POTASSIUM 4.2 mmol/L (3.6-5.0); SODIUM 138.3 mmol/L (137-145)
[2019-01-06] MEDS ORDERED: HYDROCHLOROTHIAZIDE 12.5 MG TABLET PO SCH (08:00)
[2019-01-06] MEDS: INSULIN LISPRO 100 UNIT/ML 3 ML VIAL SUBCUT SCH ×2 (10:01→14:41)
[2019-01-06] MEDS: POLYETHYLENE GLYCOL 3350 POWDER 17 GM/1 PACKET PO SCH (10:03)
[2019-01-06] MEDS: AMLODIPINE BESYLATE 5 MG TABLET PO SCH (10:13)
[2019-01-06] MEDS: FAMOTIDINE 20 MG TABLET PO SCH (10:13)
[2019-01-06] MEDS: ASPIRIN 81 MG TABLET, ENT COATED PO SCH (10:14)
[2019-01-06] MEDS: FLUOXETINE HCL 20 MG CAPSULE PO SCH (10:14)
[2019-01-06 16:47] VITALS: BP 146/88
[2019-01-06] MEDS ORDERED: AMLODIPINE BESYLATE 5 MG TABLET PO SCH (22:00)
--- NOTE | 2019-01-09 13:46 | PDOC DISCHARGE SUMMARY ---
General - Admit/Disc Date/PCP Admission Date/Primary Care Provider: 01/01/19 14:22 Discharge Date: 01/06/19 - Discharge Diagnosis (1) Acute CVA (cerebrovascular accident) Is this a current diagnosis for this admission?: Yes Summary: Patient presented with slurred speech and right-sided weakness the progressively worsened overnight. Arrived to ED outside tPA window. Head CT and MRI reveal a left territory MCA acute to subacute infarction. Carotid Doppler is negative for hemodynamically significant stenosis. Patient was admitted to [facility] on continuous cardiac telemetry; remained in NSR, no Hx of PAF. He was initially allowed permissive HTN; have gradually decreased BP. At time of discharge, BP 146/88. He was started on daily aspirin and high-dose statin therapy. PT/OT/ST consultations were obtained; originally recommended for inpatient acute rehabilitation. Unfortunately, the patient's insurance required prior authorization. 48 hrs later, the patient was requesting to be discharged to home with outpatient rehabilitation services. Therapy services agreed that this would be a viable option. On day of discharge, patient is discharged to home with self care. He is prescribed amlodipine, atorvastatin, aspirin, Prozac, metformin, glucometer kit, and NicoDerm patches. He is prescribed a donnell-walker and shower chair. He is advised to follow up with his primary care provider within 1 week and to keep all therapy services appointments. He is instructed to return to the emergency department immediately for any concerning symptoms. (2) DM type 2 (diabetes mellitus, type 2) Is this a current diagnosis for this admission?: Yes Summary: A1C 11.5% Patient is placed on a consistent carb/cardiac diet. He was provided the opportunity to meet with the registered nurse practitioner and senior health educator. He is started on Metformin and advised of the importance of PCP follow up for additional glucose management. (3) Hypertension Is this a current diagnosis for this admission?: Yes Summary: Patient endorses a history of hypertension; reports that he has been off of his blood pressure medications for at least one year. On admission is found to have blood pressures 200/100. ED provider noted significant increase in patient's symptomology with slight reduction in blood pressures. Have allowed for permissive hypertension secondary to acute CVA. Questionable allergic reaction to lisinopril and enalapril (report of lip swelling that rapidly resolved). Have discontinued lisinopril and enalapril. He is advised to report this reaction to PCP to prevent possible allergic reaction/angioedema. He is prescribed Amlodipine 5 mg twice daily and HCTZ He is recommended to continue Cardiac diet. Recommend outpatient follow up with PCP for continued HTN management. (4) Tobacco dependence Is this a current diagnosis for this admission?: Yes Summary: Smoking cessation strongly encouraged. Nicotine replacement therapies are provided while admitted; provided prescri ption for NicoDerm patches at discharge. (5) Hyperlipidemia Is this a current diagnosis for this admission?: Yes Summary: LDL 145, HDL 54, Triglycerides 181, TChol 229 Cardiac diet. Continue high dose statin post discharge. (6) SAL[place] (acute kidney injury) Is this a current diagnosis for this admission?: Yes Summary: Improved. Cr 1.12-> 1.58-> 1.59->1.39 Likely multifactorial secondary to hypertension, lisinopril and enalapril use. MILO inhibitors were discontinued and HTN management achieved. He was provided gentle IVF and encouraged to increase p.o. intake. Recommend repeat chemistry at follow up appointment w/ PCP within 1 week. - Additional Information Resuscitation Status: Full Code Discharge Diet: As Tolerated, Cardiac, Diabetic Discharge Activity: Activity As Tolerated, Balance Activity w/Rest, Slowly Increase Activity, Supervised Activity Prescriptions: Amlodipine Besylate [Norvasc 5 mg Tablet] 5 mg PO Q12 #60 tablet Aspirin [Ecotrin 81 mg EC Tablet] 81 mg PO DAILY #90 tabec Atorvastatin Calcium [Lipitor 80 mg Tablet] 80 mg PO QHS #90 tablet Blood-Glucose Meter [Blood Glucose Monitoring] 1 each BID #1 kit Fluoxetine HCl [Prozac 20 mg Capsule] 20 mg PO DAILY #30 capsule Metformin HCl [Glucophage XR 500 mg Tablet] 500 mg PO QPM #30 tablets Nicotine [Nicoderm 21 mg/24 Hr Transderm Patch] 1 each TD DAILYP PRN #30 patc h.td24 PRN Reason: Pen Needle, Diabetic [Pen [place]] 1 each MC QHS #30 dis.needle Home Medications: Amlodipine Besylate [Norvasc 5 mg Tablet] 5 mg PO Q12 #60 tablet 01/06/19 Aspirin [Ecotrin 81 mg EC Tablet] 81 mg PO DAILY #90 tabec 01/06/19 Atorvastatin Calcium [Lipitor 80 mg Tablet] 80 mg PO QHS #90 tablet 05/10/19 Blood-Glucose Meter [Blood Glucose Monitoring] 1 each BID #1 kit 01/06/19 Docusate Sodium [Colace 100 mg Capsule] 100 mg PO BIDP PRN capsule 01/06/19 Fluoxetine HCl [Prozac 20 mg Capsule] 20 mg PO DAILY #30 capsule 01/06/19 Ibuprofen [Motrin 600 mg Tablet] 600 mg PO Q6HP PRN tablet 01/06/19 Metformin HCl [Glucophage XR 500 mg Tablet] 500 mg PO QPM #30 tablets 01/06/19 Nicotine [Nicoderm 21 mg/24 Hr Transderm Patch] 1 each TD DAILYP PRN #30 patch.td24 01/06/19 Pen Needle, Diabetic [Pen [place]] 1 each QHS #30 dis.needle 01/06/19 Polyethylene Glycol 3350 [Miralax Powder 17 gm/Packet] 17 gm PO DAILY powd.pack 01/06/19 History of Present Illness History of Present Illness: LEONILA RODRIGUEZ is a 59 year old male with a past medical history of hypertension, hyperlipidemia, type 2 diabetes mellitus, and hepatitis C (post treatment with Harvoni) who presented to the emergency department with a complaint of progressively worsening right-sided weakness first noticed approximately 1 AM. Patient reports that as he was getting up to use restroom overnight he noted that he was becoming progressively weak on the right side with slurred speech. Evaluation in the emergency department revealed hypertension (212/107), unremarkable laboratory evaluation other than elevated glucose (mid 200s), normal chest x-ray, EKG demonstrating NSR with LVH, head CT demonstrating age-indeterminate lacunar infarct anterior limb of the left internal capsule with atrophy and small vessel ischemic changes. Follow-up MRI reveals 1.7 cm acute to subacute infarction of the left frontal temporal periventricular white matter with some involvement of the posterior limb of the internal capsule; left MCA acute CVA. He is referred to the hospitalist service for admission and management of the above-stated complaints. Physical Exam Vital Signs: Temp Pulse Resp BP Pulse Ox 98.0 F 90 18 146/88 H 97 01/06/19 16:42 01/06/19 16:42 01/06/19 16:42 01/06/19 16:42 01/06/19 16:42 General appearance: PRESENT: no acute distress, well-developed, well-nourished Head exam: PRESENT: atraumatic, normocephalic Eye exam: PRESENT: conjunctiva pink, EOMI, PERRLA. ABSENT: scleral icterus Ear exam: PRESENT: normal external ear exam Mouth exam: PRESENT: moist, tongue midline Neck exam: ABSENT: carotid bruit, JVD, lymphadenopathy, thyromegaly Respiratory exam: PRESENT: clear to auscultation fredi, symmetrical, unlabored. ABSENT: rales, rhonchi, wheezes Cardiovascular exam: PRESENT: RRR, +S1, +S2. ABSENT: diastolic murmur, rubs, systolic murmur Pulses: PRESENT: normal dorsalis pedis pul Vascular exam: PRESENT: normal capillary refill GI/Abdominal exam: PRESENT: normal bowel sounds, soft. ABSENT: distended, guarding, mass, organolmegaly, rebound, tenderness Rectal exam: PRESENT: deferred Extremities exam: ABSENT: calf tenderness, clubbing, full ROM - Limited range of motion right lower extremity, flaccid paralysis (though with some spontaneous movements) right upper extremity, pedal edema Musculoskeletal exam: PRESENT: ambulatory - w/ Hemiwalker and moderat assistance Neurological exam: PRESENT: alert, awake, oriented to person, oriented to place, oriented to time, oriented to situation, CN II-XII grossly intact, other - Slight left-sided facial droop (improved), right member of technical staff 0/5, right dorsiflexion 3/5. ABSENT: motor sensory deficit Psychiatric exam: PRESENT: appropriate affect, normal mood. ABSENT: homicidal ideation, suicidal ideation Skin exam: PRESENT: dry, intact, warm. ABSENT: cyanosis, rash Results Laboratory Results: 01/05/19 05:33 01/06/19 04:53 01/01/19 01/01/19 01/02/19 05:35 05:35 12:36 Creatine Kinase 88 CK-MB (CK-2) 0.88 Troponin I 0.016 0.018 Impressions: Chest X-Ray 01/01/19 05:32 IMPRESSION: Negative chest copyright 2011 [employer]- All Rights Reserved Head CT 01/01/19 05:32 IMPRESSION: Age indeterminate lacunar infarct anterior limb left internal capsule. Atrophy. Small vessel ischemic change. TECHNICAL DOCUMENTATION: Quality ID # [id number]: Final reports with documentation of one or more dose reduction techniques (e.g., Automated exposure control, adjustment of the mA and/or kV according to patient size, use of iterative reconstruction technique) copyright 2010 [employer]- All Rights Reserved Head MRI 01/01/19 12:25 IMPRESSION: Positive for an area of approximately 1.7 cm acute or sub-acute infarction in the left frontotemporal periventricular white matter with some i nvolvement of the posterior limb of the internal capsule. EVIDENCE OF ACUTE STROKE: YES. LEFT MCA. Carotid Doppler Study 01/01/19 14:37 IMPRESSION: NO HEMODYNAMICALLY SIGNIFICANT STENOSIS. Qualifiers - * PATIENT BEING DISCHARGED WITH ANY OF THE FOLLOWING DIAGNOSIS: Stroke Stroke Pt being discharged on Anti-thrombolytic therapy?: Yes Stroke Pt being discharged on Anti-coagulation therapy?: No Reason(s) for not prescribing Anti-coagulation therapy:: Not indicated Stroke Pt being discharged on Statins?: Yes Acute Heart Failure Is this a Heart Failure Patient?: No Plan Discharge Plan: Discharge to home with self-care. Follow-up with primary care provider within 1 week. Stop smoking. Keep outpatient physical therapy appointments. Return to the emergency department as needed for concerning symptoms. Time Spent: Greater than 30 Minutes
== END 2019-01-06 17:12 | disposition home or self-care (01) | DRG 65 ==
LOC: ER 05:30 → INTOOBSV 14:22 → OBSVTOIN 14:22 → EH 14:22 → 3W 15:48
PROVIDERS: ADMIT Hospitalist; ATTEND Hospitalist
DX: I63.411 Cerebral infarction due to embolism of right middle cerebral artery (principal); N17.9 Acute kidney failure, unspecified; G81.01 Flaccid hemiplegia affecting right dominant side; I16.1 Hypertensive emergency; E11.40 Type 2 diabetes mellitus with diabetic neuropathy, unspecified; R13.10 Dysphagia, unspecified; D75.1 Secondary polycythemia; E11.65 Type 2 diabetes mellitus with hyperglycemia; I48.0 Paroxysmal atrial fibrillation; R53.1 Weakness; R47.81 Slurred speech; I10 Essential (primary) hypertension; E78.5 Hyperlipidemia, unspecified; R29.810 Facial weakness; D64.9 Anemia, unspecified; F17.210 Nicotine dependence, cigarettes, uncomplicated; R29.712 NIHSS score 12; Z79.82 Long term (current) use of aspirin; Z79.84 Long term (current) use of oral hypoglycemic drugs; Z86.19 Personal history of other infectious and parasitic diseases; Z88.6 Allergy status to analgesic agent
CPT/HCPCS: 36415; 70450; 70551; 71045; 80048; 80053; 80061; 82550; 82553; 82962; 83036; 84484; 85025; 85027; 85610; 85730; 93005; 93010; 93306; 93880; 96360; 96361; 99291; J1644; J1815; J3490; J7030

== ENCOUNTER 2020-02-13 02:41 | Emergency (ER) | payer OTHER ==
[2020-02-13] MEDS ORDERED: OXYCODONE HCL IR 5 MG TABLET PO ONE (03:55)
--- NOTE | 2020-02-13 03:58 | ER Document Report ---
ED Extremity Problem, Lower - General TRAVEL OUTSIDE OF THE [place] IN LAST 30 DAYS: No <HUMA KHANNA - Last Filed: 02/13/20 07:41> <BRANTAARON Jose Luis - Last Filed: 02/13/20 19:53> - General Chief Complaint: Wound Infection Stated Complaint: LEFT FOOT PAIN Time Seen by Provider: 02/13/20 03:41 Primary Care Provider: CORIE HSU MD [ACTIVE STAFF] - Follow up in 3-5 days Notes: Patient is a 60-year-old male who comes emergency department for chief complaint of swelling and pain to the left foot and ankle. He states that he was diagnosed with a diabetic ulcer on the inner part of his left ankle, he states that he had bad cellulitis that extended all the way up to his thigh, he states he was transferred from [facility] where he is usually seen as a and was hospitalized at [facility]. He states he was seen by infectious disease, discharge, he states he is currently taking 2 antibiotics. He states he was discharged without any pain medication and the pain was too much tonight and he could not sleep so he came in for evaluation. He denies reinjury. He does admit to some drainage which has been both clear and colored from the ulcer, he states this is not new however. He states the leg is actually better than it was before hand and the lot of the redness and swelling has actually gone down. He denies fever/chills, nausea/vomiting. He has a history of type 2 diabetes on pills, hypertension, hyperlipidemia, CVA. (HUMA KHANNA) - Related Data Allergies/Adverse Reactions: acetaminophen [From Tylenol 8 Hour] Adverse Reaction (Unknown, Verified 02/13/20 02:51) Past Medical History - General Information source: Patient - Social History Smoking Status: Never Smoker Frequency of alcohol use: None Drug Abuse: None Lives with: Family Family History: Reviewed & Not Pertinent Patient has homicidal ideation: No - Past Medical History Cardiac Medical History: Reports: Hx Hypercholesterolemia, Hx Hypertension Denies: Hx Coronary Artery Disease, Hx Heart Attack Pulmonary Medical History: Denies: Hx Asthma, Hx Bronchitis, Hx COPD, Hx Pneumonia Neurological Medical History: Denies: Hx Cerebrovascular Accident, Hx Seizures Endocrine Medical History: Reports: Hx Diabetes Mellitus Type 2 Renal/ Medical History: Denies: Hx Peritoneal Dialysis GI Medical History: Reports: Hx Hepatitis - Hep C Musculoskeletal Medical History: Denies Hx Arthritis Infectious Medical History: Reports: Hx Hepatitis - Hep C Past Surgical History: Reports: Hx Abdominal Surgery - liver bx, Hx Oral Surgery - dental extraction - Immunizations Immunizations up to date: Yes Hx Diphtheria, Pertussis, Tetanus Vaccination: Yes <HUMA KHANNA - Last Filed: 02/13/20 07:41> Review of Systems - Review of Systems Constitutional: No symptoms reported EENT: No symptoms reported Cardiovascular: No symptoms reported Respiratory: No symptoms reported Gastrointestinal: No symptoms reported Genitourinary: No symptoms reported Male Genitourinary: No symptoms reported Musculoskeletal: See HPI Skin: See HPI Hematologic/Lymphatic: No symptoms reported Neurological/Psychological: No symptoms reported <HUMA KHANNA - Last Filed: 02/13/20 07:41> Physical Exam <HUMA KHANNA - Filed: 02/13/20 07:41> - Vital signs Vitals: Temp Pulse Resp BP Pulse Ox 98.2 F 102 H 16 138/77 H 100 02/13/20 02:46 02/13/20 02:46 02/13/20 02:46 02/13/20 02:46 02/13/20 02:46 - Notes Notes: GENERAL: Alert, interacts well. No acute distress. HEAD: Normocephalic, atraumatic. EYES: Pupils equal, round, and reactive to light. Extraocular movements intact. ENT: Oral mucosa moist, tongue midline. Oropharynx unremarkable. Airway patent. NECK: Full range of motion. Supple. Trachea midline. No lymphadenopathy. LUNGS: Clear to auscultation bilaterally, no wheezes, rales, or rhonchi. No respiratory distress. Non-tender chest wall. HEART: Regular rate and rhythm. No murmur ABDOMEN: Soft, non-tender. Non-distended. Bowel sounds present in all 4 quadrants. GENITOURINARY: Deferred EXTREMITIES: Left lower extremity is swollen including the foot, ankle, and up towards the knee. There is warmth but there is no overt cellulitis. In the medial ankle just superior to the malleolus is a open ulcer with surrounding dried skin, no current drainage, somewhat foul smell. Distal pulses and sensation intact. Dried cracked skin along most of the lower extremity on the left. Patient unable to bear weight on the left leg. Extremities otherwise unremarkable. BACK: no cervical, thoracic, lumbar midline tenderness. No saddle anesthesia, normal distal neurovascular exam. NEUROLOGICAL: Alert and oriented x3, but slightly difficult historian. Normal speech. Cranial nerves II through XII grossly intact. Strength 5/5 in all extremities. PSYCH: Normal affect, normal mood. SKIN: Warm, dry, normal turgor. No rashes or lesions noted. (HUMA KHANNA) Course - Laboratory Result Diagrams: 02/13/20 06:27 02/13/20 06:27 <HUMA KHANNA - Last Filed: 02/13/20 07:41> - Laboratory Result Diagrams: 02/13/20 15:52 02/13/20 06:27 <AARON GUO - Last Filed: 02/13/20 19:53> - Re-evaluation Re-evalutation: There was an almost 3-hour delay in patient having his blood drawn. X-rays show soft tissue swelling but no free air or fractures. Patient is telling me that his symptoms of swelling in his leg are actually significantly improved. Patient appears to need ongoing wound care for this and he is currently on appropriate antibiotics with doxycycline and Cipro. His vital signs are unremarkable and he is afebrile. He is complaining of pain in the leg when he walks but has no complaints otherwise. Patient will likely need ongoing care with a wound clinic. CBC shows borderline leukocytosis, no concerning shift. There is significant normocytic anemia with hemoglobin of 6.7, last hemoglobin was about a year ago and was 16. Patient denies blood in the stool, he does state on further questioning that he was recommended a transfusion at [facility] but he became afraid and declined. He has never had a transfusion in the past. He denies vomiting or vomiting blood. He is not on a blood thinner. I did discuss options and patient now states he would like to have the blood transfusion. Patient does admit to significant generalized weakness but he is denying shortness of breath, dizziness, or passing out. Rectal exam performed and this was negative with Hemoccult testing. (HUMA KHANNA) [id number] with previous physician executive personal assistant, HOMAR Hillman. HPI, review of systems, physical examination. Pertinent laboratory diagnostic clinical examinations reviewed. Awaiting for patient to receive a blood transfusion due to a hemoglobin of 6.7. Patient is awaiting for transfusion. Patient does deny any nausea vomiting diarrhea, any melena or hemoptysis. Very slight leukocytosis at this time however patient is being treated with outpatient antibiotic therapy with doxycycline and ciprofloxacin. x-ray negative for any osteomyelitis, no free air or fractures of foreign body noted. Vital signs stable. Afebrile. Patient in no distress at this time. Heart rate is under 100 at this time. Patient given pain medication throughout duration of stay while receiving 2 units of blood transfusion. Vitals otherwise stable. Social work has been included for patient to receive outpatient care for wound management. Referral has been placed for outpatient management. Repeat CBC shows a hemoglobin of 9.1. Patient states he is feeling normal as he was asymptomatic prior. Discussed with patient he needs to follow-up outpatient for further evaluation as well as taking his doxycycline and ciprofloxacin. Patient was given dose and patient. Patient verbalized understanding this plan of care and agreed with plan of care. After performing a Medical Screening Examination, I estimate there is LOW risk for OPEN FRACTURE, COMPARTMENT SYNDROME, TENDON RUPTURE, ACUTE NEUROVASCULAR INJURY, or RETAINED FOREIGN BODY, intracranial hemorrhage, ischemic CVA, malignant dis-arrhythmia, acute coronary syndrome, meningitis, pulmonary embolism, sepsis thus I consider the discharge disposition reasonable. Also, there is no evidence or peritonitis, sepsis, or toxicity. I have reevaluated this patient multiple times and no significant life threatening changes are noted. The patient and I have discussed the diagnosis and risks, and we agree with discharging home with close follow-up with the understanding that symptoms and presentations can change. We also discussed returning to the Emergency Department immediately if new or worsening symptoms occur. We have discussed the symptoms which are most concerning (e.g., changing or worsening pain, fever, numbness, weakness, chest pain, vomiting, fever cool or painful digits) that necessitate immediate return. 02/13/20 19:52 (AARON GUO) - Vital Signs Vital signs: Temp Pulse Resp BP Pulse Ox 98.8 F 99 29 H 145/75 H 100 02/13/20 14:01 02/13/20 14:20 02/13/20 15:01 02/13/20 16:01 02/13/20 16:01 - Laboratory Laboratory results interpreted by me: 02/13/20 02/13/20 02/13/20 03:03 06:27 06:27 WBC 11.5 H RBC 2.23 L Hgb 6.7 L Hct 19.7 L MCHC APTT Sodium 134.1 L Glucose 123 H POC Glucose 130 H Crossmatch 02/13/20 02/13/20 02/13/20 06:27 07:36 15:52 WBC RBC 2.92 L Hgb 9.1 L D Hct 25.3 L MCHC 36.1 H APTT 41.0 H Sodium Glucose POC Glucose Crossmatch See Detail Discharge <HUMA KHANNA - Last Filed: 02/13/20 07:41> <BRANTAARON Jose Luis - Last Filed: 02/13/20 19:53> - Discharge Clinical Impression: Swelling of left lower extremity, Diabetic ulcer of ankle, Symptomatic anemia Condition: Stable Disposition: HOME, SELF-CARE Additional Instructions: Please keep the ulcer clean and dressed with a clean dressing, call the listed referral and follow-up with the wound care clinic for additional management of this. Continue your doxycycline and Cipro. You have been given a blood transfusion for your anemia, please follow-up with the listed referral below for additional evaluation and management of your a nemia. Return if you worsen including increased swelling or pain, spreading redness, spiking fever, dizziness, passing out, or any other concerning or worsening symptoms. Referrals: CORIE HSU MD [ACTIVE STAFF] - Follow up in 3-5 days
--- NOTE | 2020-02-13 04:48 | RADIOLOGY REPORT (SQ) ---
CLINICAL INDICATION: diabetes, swelling, pain. . TECHNIQUE: 3 view(s) were obtained of the left ankle. COMPARISON: None. FINDINGS: No acute displaced fracture is identified of the ankle. Alignment appears anatomic. Joint spaces are within normal limits for age. Soft tissue injury. Possible ulcers overlying medial malleolus. No underlying bony destruction. IMPRESSION: No evidence of acute displaced fracture of the ankle. Soft tissue swelling
--- NOTE | 2020-02-13 04:49 | RADIOLOGY REPORT (SQ) ---
CLINICAL INDICATION: diabetes, swelling, pain. . TECHNIQUE: 3 view(s) were obtained of the left foot. COMPARISON: None. FINDINGS: No acute displaced fracture is identified of the foot. Alignment appears anatomic. Joint spaces are within normal limits for age. Soft tissue swelling. IMPRESSION: No evidence of acute displaced fracture of the foot. Soft tissue swelling
[2020-02-13 07:01] LABS: ABSOLUTE EOSINOPHILS # (AUTO) 0.1 10^3/uL (0.0-0.6); ABSOLUTE LYMPHOCYTES (AUTO) 2.8 10^3/uL (0.5-4.7); ABSOLUTE MONOCYTES (AUTO) 0.8 10^3/uL (0.1-1.4); ABSOLUTE NEUT (AUTO) 7.8 10^3/uL (1.7-8.2); BASOPHILS % (AUTO) 0.4 % (0-2); BLOOD UREA NITROGEN 10 mg/dL (7-20); CALCIUM 9.3 mg/dL (8.4-10.2); CARBON DIOXIDE 26 mmol/L (22-30); CHLORIDE 103 mmol/L (98-107); EOSINOPHILS % (AUTO) 0.8 % (0-6); GLUCOSE 123 mg/dL (75-110); HEMATOCRIT 19.7 % (37.9-51.0); LYMPHOCYTES % (AUTO) 23.9 % (13-45); MEAN CORPUSCULAR HGB CONC 34.1 g/dL (32.0-36.0); MEAN CORPUSCULAR VOLUME 88 fl (80-97); MONOCYTES % (AUTO) 7.4 % (3-13); PLATELET COUNT 425 10^3/uL (150-450); POTASSIUM 3.9 mmol/L (3.6-5.0); RED BLOOD COUNT 2.23 10^6/uL (4.35-5.55); SEGMENTED NEUTROPHILS % (AUTO) 67.5 % (42-78); TOTAL CELLS COUNTED % (AUTO) 100 %; WHITE BLOOD COUNT 11.5 10^3/uL (4.0-10.5)
[2020-02-13 07:08] LABS: ANION GAP 5 (5-19)
[2020-02-13 07:11] LABS: HEMOGLOBIN 6.7 g/dL (13.5-17.0)
[2020-02-13] MEDS ORDERED: NORMAL SALINE 250 ML IV PRN ×2 (07:24)
[2020-02-13 07:28] LABS: INTERNATIONAL RATION (INR) 1.11; PROTHROMBIN TIME 14.3 SEC (11.4-15.4)
[2020-02-13] MEDS ORDERED: MORPHINE SULFATE 10 MG/ML INJ IV ONE ×2 (10:18→15:34)
[2020-02-13] MEDS ORDERED: CIPROFLOXACIN HCL 500 MG TABLET PO ONE (15:35)
[2020-02-13] MEDS ORDERED: DOXYCYCLINE HYCLATE 100 MG TABLET PO ONE (15:35)
[2020-02-13 16:15] LABS: ABSOLUTE BASOPHILS # (AUTO) 0.1 10^3/uL (0.0-0.2); ABSOLUTE EOSINOPHILS # (AUTO) 0.1 10^3/uL (0.0-0.6); ABSOLUTE MONOCYTES (AUTO) 0.9 10^3/uL (0.1-1.4); BASOPHILS % (AUTO) 0.7 % (0-2); EOSINOPHILS % (AUTO) 1.1 % (0-6); HEMATOCRIT 25.3 % (37.9-51.0); LYMPHOCYTES % (AUTO) 33.3 % (13-45); MEAN CORPUSCULAR HEMOGLOBIN 31.3 pg (27.0-33.4); MEAN CORPUSCULAR HGB CONC 36.1 g/dL (32.0-36.0); MEAN CORPUSCULAR VOLUME 87 fl (80-97); MONOCYTES % (AUTO) 10.3 % (3-13); PLATELET COUNT 381 10^3/uL (150-450); RED BLOOD COUNT 2.92 10^6/uL (4.35-5.55); SEGMENTED NEUTROPHILS % (AUTO) 54.6 % (42-78); TOTAL CELLS COUNTED % (AUTO) 100 %; WHITE BLOOD COUNT 9.1 10^3/uL (4.0-10.5)
[2020-02-13 16:17] LABS: HEMOGLOBIN 9.1 g/dL (13.5-17.0)
[2020-02-13 16:37] VITALS: BP 145/75
== END 2020-02-13 17:09 | disposition home or self-care (01) ==
LOC: ER 02:41
DX: E11.622 Type 2 diabetes mellitus with other skin ulcer (principal); L97.329 Non-pressure chronic ulcer of left ankle with unspecified severity; L03.116 Cellulitis of left lower limb; D64.9 Anemia, unspecified; M79.672 Pain in left foot; M25.572 Pain in left ankle and joints of left foot; R53.1 Weakness; I10 Essential (primary) hypertension; Z79.899 Other long term (current) drug therapy
CPT/HCPCS: 96376; 99283; 96361; 96374; 86900; 86901; 36415; 36430; 86850; 82962; 85025; 85610; 85730; 82270; 80048; 86920; 73610; 73630; P9016; J2270; J7050